=== PATIENT | male | born 1980 | race Caucasian/White ===

== ENCOUNTER → 2017-12-30 07:11 | Outpatient (CLI) | payer OTHER, SELFPAY ==
[2017-12-30 08:37] LABS: Microalbumin,Random Urine 37.2 mg/L (NO RANGE EST.); Microalbumin:Creatinine Ratio 9.7 mg/g CRE (<30 mg/g CRE)
[2017-12-30 08:44] LABS: AST(SGOT) 13 U/L (15-37); Alanine Aminotransfer ALT/SGPT 34 U/L (16-61); Alkaline Phosphatase 79 U/L (45-117); Anion Gap 7 (5-15); BUN 11 mg/dL (7-18); BUN/Creat Ratio 14.1 RATIO (10-20); Bilirubin, Direct 0.23 mg/dL (0.00-0.30); Calcium,Total 8.7 mg/dL (8.5-10.1); Chloride 108 mmol/L (98-107); Cholesterol 130 mg/dL (200); Creatinine, Serum 0.78 mg/dL (0.70-1.30); EST Glomerular Filtration Rate 119 mL/min (>60); Est Glom Filt Rate - Afr Amer 144 mL/min (>60); Globulin 3.3 g/dL (2.2-4.2); Glucose 105 mg/dL (74-106); High Density Lipoprotein 49 mg/dL; Potassium 3.9 mmol/L (3.5-5.1); Protein, Total 7.3 g/dL (6.4-8.2); Sodium Level 144 mmol/L (136-145); Triglycerides 117 mg/dL; Very Low Density Lipoprotein 23 mg/dL (5-40)
== END ==
PROVIDERS: Family Provider Family Medicine; PCP Family Medicine; Visit Provider Family Medicine
DX: E11.9 Type 2 diabetes mellitus without complications (principal)
CPT/HCPCS: 36415; 80048; 80061; 80076; 82043; 82570

== ENCOUNTER → 2018-06-28 16:51 | Outpatient (CLI) | payer OTHER, SELFPAY ==
[2018-06-28 17:51] LABS: Microalbumin,Random Urine 6.1 mg/L (NO RANGE EST.); Microalbumin:Creatinine Ratio 9.5 mg/g CRE (<30 mg/g CRE)
[2018-06-28 18:03] LABS: AST(SGOT) 17 U/L (15-37); Alanine Aminotransfer ALT/SGPT 38 U/L (16-61); Alkaline Phosphatase 74 U/L (45-117); Anion Gap 9 (5-15); BUN 10 mg/dL (7-18); BUN/Creat Ratio 12.3 RATIO (10-20); Bilirubin, Direct 0.12 mg/dL (0.00-0.30); Calcium,Total 8.8 mg/dL (8.5-10.1); Chloride 103 mmol/L (98-107); Cholesterol 139 mg/dL (200); Creatinine, Serum 0.81 mg/dL (0.70-1.30); EST Glomerular Filtration Rate 113 mL/min (>60); Est Glom Filt Rate - Afr Amer 137 mL/min (>60); Globulin 3.5 g/dL (2.2-4.2); Glucose 221 mg/dL (74-106); High Density Lipoprotein 43 mg/dL; Potassium 3.8 mmol/L (3.5-5.1); Protein, Total 7.5 g/dL (6.4-8.2); Sodium Level 141 mmol/L (136-145); Triglycerides 293 mg/dL; Very Low Density Lipoprotein 59 mg/dL (5-40)
== END ==
LOC: MFPLAB 16:52
PROVIDERS: Family Provider Family Medicine; PCP Family Medicine; Visit Provider Family Medicine
DX: E11.9 Type 2 diabetes mellitus without complications (principal)
CPT/HCPCS: 36415; 80048; 80061; 80076; 82043; 82570

== ENCOUNTER → 2018-09-27 16:44 | Outpatient (CLI) | payer OTHER, SELFPAY ==
[2018-09-27 18:07] LABS: Anion Gap 9 (5-15); BUN 8 mg/dL (7-18); BUN/Creat Ratio 9.1 RATIO (10-20); Calcium,Total 9.1 mg/dL (8.5-10.1); Chloride 103 mmol/L (98-107); Cholesterol 153 mg/dL (200); Creatinine, Serum 0.88 mg/dL (0.70-1.30); EST Glomerular Filtration Rate 102 mL/min (>60); Est Glom Filt Rate - Afr Amer 124 mL/min (>60); Glucose 94 mg/dL (74-106); High Density Lipoprotein 48 mg/dL; Sodium Level 141 mmol/L (136-145); Triglycerides 187 mg/dL; Very Low Density Lipoprotein 37 mg/dL (5-40)
== END ==
PROVIDERS: Family Provider Family Medicine; PCP Family Medicine; Visit Provider Family Medicine
DX: E11.9 Type 2 diabetes mellitus without complications (principal); Z79.4 Long term (current) use of insulin
CPT/HCPCS: 36415; 80048; 80061

== ENCOUNTER → 2019-10-05 | Outpatient (CLI) | payer OTHER, SELFPAY ==
[2019-10-05 08:35] LABS: Microalbumin,Random Urine 39.9 mg/L (NO RANGE EST.)
[2019-10-05 08:42] LABS: Anion Gap 5 (5-15); BUN 12 mg/dL (7-18); BUN/Creat Ratio 13.3 RATIO (10-20); Calcium,Total 9.1 mg/dL (8.5-10.1); Chloride 106 mmol/L (98-107); Cholesterol 157 mg/dL (200); EST Glomerular Filtration Rate 99 mL/min (>60); Est Glom Filt Rate - Afr Amer 120 mL/min (>60); Glucose 122 mg/dL (74-106); High Density Lipoprotein 49 mg/dL; Sodium Level 140 mmol/L (136-145); Triglycerides 169 mg/dL; Very Low Density Lipoprotein 34 mg/dL (5-40)
== END | disposition home or self-care (01) ==
LOC: LAB 07:22
PROVIDERS: Family Provider Family Medicine; PCP Family Medicine; Referring Provider Family Medicine; Visit Provider Family Medicine
DX: E11.65 Type 2 diabetes mellitus with hyperglycemia (principal)
CPT/HCPCS: 36415; 80048; 80061; 82043

== ENCOUNTER 2019-11-25 00:42 | Emergency (ER) | payer OTHER, SELFPAY ==
[2019-11-25 00:43] VITALS: BP 124/91; PULSE 68; RESP 16; TEMP 36.4; O2SAT 100; BMI 24.3
[2019-11-25 01:04] VITALS: BP 131/93; PULSE 73; RESP 18; O2SAT 100
--- NOTE | 2019-11-25 02:22 | ED.VIS.GEN ---
History of Present Illness Chief Complaint: Numb/Ting Informant: Patient Narrative: Patient stated he felt this evening with acute onset of full body paresthesia. He took his blood sugar was over 400. He has a history of diabetes. Give himself some insulin. His symptoms soon subsided. He was able to fall asleep in the department. Denies any complaints at this time. No nausea vomiting fevers or chills. Past Medical History - Allergies and Home Meds Allergies/Adverse Reactions: Allergies No Known Allergies Allergy (Verified 11/25/19 00:43) Primary Care Physician: Sae Sena MD [Primary Care Provider] - Prior records reviewed: Yes Past Medical History: - - Diabetes Surgical History: noncontributory Lives: With Family Smoking Status: Current every day smoker Alcohol: None Drugs: None Review of Systems General: Denies: Chills, Fever, Sweats Eyes: Denies: Visual changes - bilaterally, Diplopia ENT: Denies: Rhinorrhea, Sore throat Cardiovascular: Denies: Chest pain, Palpitations Respiratory: Denies: Dyspnea, Cough, Dyspnea on exertion Gastrointestinal: Denies: Abdominal pain, Nausea, Vomiting, Diarrhea, Melena, Hematochezia Genitourinary: Denies: Dysuria, Hematuria, Frequency Musculoskeletal: Denies: Back pain, Extremity Pain Skin: Denies: Rash, Wounds Neurological: Reports: Parasthesia. Denies: Headache, Weakness, Numbness Physical Exam Vital Signs/Narrative: Vital Signs Temp Pulse Resp BP Pulse Ox 11/25/19 01:04 73 18 131/93 H 100 11/25/19 00:43 97.6 F L 68 16 124/91 H 100 General: Well nourished, Well developed, No Acute Distress Head: Normocephalic, Atraumatic Eyes: Perrl, EOMI ENT: Moist mucous membranes, No rhinorrhea Neck: Supple, Nontender Cardiovascular: Regular rate, Regular rhythm, No murmurs Respiratory: No distress, CTA bilaterally, Chest nontender Abdomen: Soft, Nontender, Nondistended, Normal bowel sounds Back: Nontender, Normal Inspection Extremities: Nontender, No edema Skin: Normal color, No rash Neurological: Alert, Oriented x3, Cranial nerves II-XII grossly intact, Normal Strength, Normal Sensation Psychological: Normal affect, Normal Mood Diagnostic/Tx/Re-eval - Medical Decision Making Patient resting comfortably. He does not want bladder blood work. Symptoms have resolved. Repeat blood sugar 262. At this time I feel the patient can be discharged ED Disposition - Plan for ED Patient: Disposition: Home or Assisted Living Diagnosis: Paresthesia, Diabetes mellitus with hyperglycemia Instructions: DIABETES, General Info Referrals: Sae Sena MD [Primary Care Provider] -
[2019-11-25 02:31] LABS: Bedside Glucose 262 mg/dL (70-110)
== END 2019-11-25 02:35 | disposition home or self-care (01) ==
PROVIDERS: Emergency Provider Emergency Medicine; Family Provider Family Medicine; PCP Family Medicine
DX: R20.2 Paresthesia of skin (principal); E11.65 Type 2 diabetes mellitus with hyperglycemia; Z79.4 Long term (current) use of insulin; F17.200 Nicotine dependence, unspecified, uncomplicated
CPT/HCPCS: 82962; 99282; A4216

== ENCOUNTER → 2020-10-15 17:09 | Outpatient (CLI) | payer OTHER, SELFPAY ==
[2020-10-15 18:29] LABS: Anion Gap 4 (5-15); BUN 8 mg/dL (7-18); BUN/Creat Ratio 8.6 RATIO (10-20); Calcium,Total 8.9 mg/dL (8.5-10.1); Chloride 103 mmol/L (98-107); Cholesterol 146 mg/dL (200); Creatinine, Serum 0.93 mg/dL (0.70-1.30); EST Glomerular Filtration Rate 95 mL/min (>60); Est Glom Filt Rate - Afr Amer 115 mL/min (>60); Glucose 161 mg/dL (74-106); High Density Lipoprotein 45 mg/dL; Potassium 3.8 mmol/L (3.5-5.1); Sodium Level 137 mmol/L (136-145); Triglycerides 192 mg/dL; Very Low Density Lipoprotein 38 mg/dL (5-40)
== END ==
PROVIDERS: PCP Family Medicine; Visit Provider Family Medicine
DX: E11.9 Type 2 diabetes mellitus without complications (principal); Z79.4 Long term (current) use of insulin
CPT/HCPCS: 36415; 80048; 80061

== ENCOUNTER → 2021-10-23 06:55 | Outpatient (CLI) | payer OTHER, SELFPAY ==
[2021-10-23 07:48] LABS: Anion Gap 8 (5-15); BUN 10 mg/dL (7-18); BUN/Creat Ratio 10.6 RATIO (10-20); Calcium,Total 9.1 mg/dL (8.5-10.1); Chloride 103 mmol/L (98-107); Cholesterol 158 mg/dL (200); Creatinine, Serum 0.94 mg/dL (0.70-1.30); EST Glomerular Filtration Rate 94 mL/min (>60); Est Glom Filt Rate - Afr Amer 114 mL/min (>60); Glucose 78 mg/dL (74-106); High Density Lipoprotein 50 mg/dL; Potassium 3.7 mmol/L (3.5-5.1); Sodium Level 139 mmol/L (136-145); Triglycerides 150 mg/dL; Very Low Density Lipoprotein 30 mg/dL (5-40)
[2021-10-23 07:58] LABS: Microalbumin,Random Urine 29.8 mg/L (NO RANGE EST.)
== END ==
PROVIDERS: PCP Family Medicine; Referring Provider Family Medicine; Visit Provider Family Medicine
DX: E11.9 Type 2 diabetes mellitus without complications (principal)
CPT/HCPCS: 36415; 80048; 80061; 82043; 82570

== ENCOUNTER → 2022-07-23 | Outpatient (CLI) | payer OTHER, SELFPAY ==
[2022-07-23 08:21] LABS: Anion Gap 4 (5-15); BUN 13 mg/dL (7-18); BUN/Creat Ratio 11.8 RATIO (10-20); Calcium,Total 9.3 mg/dL (8.5-10.1); Chloride 106 mmol/L (98-107); EST Glomerular Filtration Rate 78 mL/min (>60); Est Glom Filt Rate - Afr Amer 94 mL/min (>60); Glucose 78 mg/dL (74-106); Potassium 4.4 mmol/L (3.5-5.1); Sodium Level 140 mmol/L (136-145)
== END | disposition home or self-care (01) ==
LOC: MTLAB 07:22 → LAB 07:23
PROVIDERS: PCP Family Medicine; Referring Provider Family Medicine; Visit Provider Family Medicine
DX: E11.9 Type 2 diabetes mellitus without complications (principal)
CPT/HCPCS: 36415; 80048

== ENCOUNTER → 2022-12-03 | Outpatient (CLI) | payer OTHER, SELFPAY ==
[2022-12-03 08:02] LABS: Anion Gap 3 (5-15); BUN 12 mg/dL (7-18); BUN/Creat Ratio 13.3 RATIO (10-20); Calcium,Total 9.2 mg/dL (8.5-10.1); Chloride 108 mmol/L (98-107); Cholesterol 148 mg/dL (200); EST Glomerular Filtration Rate 98 mL/min (>60); Est Glom Filt Rate - Afr Amer 119 mL/min (>60); Glucose 93 mg/dL (74-106); High Density Lipoprotein 50 mg/dL; Sodium Level 141 mmol/L (136-145); Triglycerides 117 mg/dL; Very Low Density Lipoprotein 23 mg/dL (5-40)
== END | disposition home or self-care (01) ==
LOC: LAB 07:32
PROVIDERS: PCP Family Medicine; Visit Provider Family Medicine
DX: E11.9 Type 2 diabetes mellitus without complications (principal)
CPT/HCPCS: 36415; 80048; 80061

== ENCOUNTER 2023-03-25 04:40 | Emergency (ER) | payer OTHER, SELFPAY ==
[2023-03-25 04:42] VITALS: BP 146/106; PULSE 108; RESP 15; TEMP 36.5; O2SAT 99; BMI 26.4
[2023-03-25 05:29] LABS: Absolute Lymphocyte Count 1.71 X10^3/uL (0.83-4.51); Absolute Neutrophil Count 6.9 X10^3/uL (2.0-7.7); Basophil# 0.05 X10^3/uL; Basophil% 0.5 % (0-1); Eosinophil# 0.15 X10^3/uL; Eosinophils% 1.6 % (0-5); Hematocrit 45.9 % (40-54); Hemoglobin 15.8 g/dL (13.0-16.5); Lymphocyte # 1.71 X10^3/ul (0.83-4.51); Lymphocyte % 17.8 % (19-41); Mean Corp Hgb Conc 34.4 g/dL (32-36); Mean Corpuscular Hgb 28.9 pg (27.0-32.0); Mean Corpuscular Volume 84.1 fL (80-94); Mean Platelet Vol. 9.8 fl (6.2-12.0); Monocyte# 0.73 X10^3/uL; Monocyte% 7.6 % (0-10); NRBC Flagged by Analyzer 0 % (0-5); Neutrophil # 6.93 X10^3/uL (2.7-7.7); Neutrophil % 72.1 % (47-70); Platelet Count 299 K/mm3 (150-450); RBC Distribution Width SD 39.6 fl (35.1-43.9); Red Blood Count 5.46 M/mm3 (4.6-6.2); White Blood Count 9.6 K/mm3 (4.4-11.0)
[2023-03-25] MEDS: 0.9% Normal Saline 1,000 ML 999 ML IV (05:33)
[2023-03-25 05:47] VITALS: BP 149/99; PULSE 92; RESP 18; O2SAT 97
[2023-03-25 05:55] LABS: Anion Gap 10 (5-15); BUN 10 mg/dL (7-18); Calcium,Total 9.2 mg/dL (8.5-10.1); Chloride 106 mmol/L (98-107); EST Glomerular Filtration Rate 87 mL/min (>60); Est Glom Filt Rate - Afr Amer 105 mL/min (>60); Estimated Creatinine Clearance 110.74 ml/min; Glucose 208 mg/dL (74-106); Magnesium 2.1 mg/dL (1.6-2.6); Potassium 4.2 mmol/L (3.5-5.1); Sodium Level 141 mmol/L (136-145); Thyroid Stim Hormone (TSH) 1.18 uIU/mL (0.358-3.74)
--- NOTE | 2023-03-25 06:16 | EX.ED.DYSGE1 ---
HPI History of Present Illness Chief Complaint: Palpitations Narrative Narrative: Patient is a 43-year-old male with remote history of supraventricular tachycardia when he was younger. He states he has not had an issue with it for multiple years. He reports he was sleeping this evening when he awoke feeling like his heart was racing. He states he tried to hold his breath as he did in the past when he would have a bout of this with no success and therefore EMS was called. Patient states that there is been no illicit drug use or excessive stimulant use that could have caused tonight symptom. EMS reports that they did give the patient adenosine prior to arrival [facility] Medical History no medical history Home Medications lisinopril 20 mg tablet 20 mg PO DAILY #30 tabs 03/25/23 [Rx Last Taken Unknown] Allergy/AdvReac Type Severity Reaction Status Date / Time No Known Allergies Allergy Verified 11/25/19 00:43 Surgical History no surgical history Social History Smoking Status: Current every day smoker tobacco type: cigarettes ROS ROS ED Constitutional Constitutional ED: Denies chills or fever(s) ENT ENT ED: Denies sore throat Cardiovascular Cardiovascular: Reports palpitations and racing heartbeat; Denies chest pain Respiratory/Chest Respiratory/Chest: Denies cough or dyspnea Gastrointestinal Gastrointestinal: Denies abdominal pain, diarrhea, nausea or vomiting Genitourinary Genitourinary ED: Denies dysuria Musculoskeletal Musculoskeletal: Denies myalgias Integumentary Denies rash Neurologic Neurologic: Denies headache(s) Hematologic/Lymphatic Hematologic/Lymphatic: Denies easy bleeding or easy bruising EXAM Physical Exam Const Vital Signs: 03/25/23 04:42 03/25/23 05:47 Temperature 97.7 F L Temperature Source Temporal Pulse Rate 108 H 92 Respiratory Rate 15 18 Blood Pressure 146/106 H 149/99 H Blood Pressure Mean 119 115 Pulse Ox 99 97 Oxygen Delivery Method Room Air Room Air Positive well nourished and well developed General Appearance ED: well developed HEENT HEENT Narrative: Normocephalic atraumatic Eyes PERRL and EOMs intact bilaterally Neck supple Neck Narrative: No carotid bruit noted Chest Wall palpation of chest normal Resp normal respiratory effort and clear to auscultation bilaterally Cardio regular rhythm Rate: tachycardic and other Other Details: Tachycardic rate with regular rhythm Radial pulses are plus 2 out of 4 bilaterally are equal and symmetric Carotid pulses are equal and symmetric as well GI normal to inspection, nondistended, normoactive bowel sounds, non-tender, non-distended and no masses Auscultation: normoactive bowel sounds Palpation: soft Extremity normal to inspection Extremity Narrative: No asymmetric edema no pitting edema negative Homans' sign bilaterally Neuro oriented x3 and CN's II-XII intact bilaterally Sensorium / Orientation: alert Psych mental status grossly normal Skin no rashes or lesions noted MDM MDM MDM Narrative Medical decision making narrative: Patient presented to the ER tachycardic but was in sinus tachycardia and not SVT which correlates with the fact EMS gave patient adenosine prior to arrival. The patient denied any illicit substance or drug use/stimulant use which could have precipitated today's event and therefore as there is possibility that acute blood loss anemia thyroid disorder or electrolyte derangement because his symptoms a basic work-up was obtained. Lab work revealed no clinically significant findings. Patient gradually reduced his heart rate to under 100 and remained in normal sinus rhythm. Patient's blood pressure was elevated but there are no signs of endorgan damage. Therefore at this time with no signs of endorgan damage and resolution of his SVT that is not requiring electrolyte replacement or having recurrent bouts of it I do not feel there is necessity to keep the patient in the hospital and he is otherwise safe for discharge Based on the fact he has been persistently hypertensive I will start lisinopril secondary to this History & Record Review Discussion w/independent historian: EMS personnel, Patient and Family Lab Data Attestation: I reviewed the patient's lab results. Labs: Laboratory Results - last 24 hr 03/25/23 03/25/23 04:50 04:50 WBC 9.6 RBC 5.46 Hgb 15.8 Hct 45.9 MCV 84.1 MCH 28.9 MCHC 34.4 RDW Std Deviation 39.6 RDW Coeff of Marjorie 13.0 Plt Count 299 MPV 9.8 Immature Gran % (Auto) 0.400 Neut % (Auto) 72.1 H Lymph % (Auto) 17.8 L Imperial % (Auto) 7.6 Eos % (Auto) 1.6 Baso % (Auto) 0.5 Absolute Neuts (auto) 6.9 Absolute Lymphs (auto) 1.71 Nucleated RBC % 0 Sodium 141 Potassium 4.2 Chloride 106 Carbon Dioxide 25.0 Anion Gap 10 BUN 10 Creatinine 1.00 Estim Creat Clear Calc 110.74 Est GFR (MDRD) Af Amer 105 Est GFR (MDRD) Non-Af 87 BUN/Creatinine Ratio 10.0 Glucose 208 H Calcium 9.2 Magnesium 2.1 TSH 1.18 Discharge Plan Triage Chief Complaint: Palpitations ED Provider: Merrick Rizvi Dx/Rx/DC Orders Clinical Impression: Supraventricular tachycardia, Hypertension Instructions: Hypertension Dc, ED Understanding Supraventricular Tachycardia (SVT) Prescriptions: New lisinopril 20 mg tablet 20 mg PO DAILY Qty: 30 0RF Primary Care Provider: Sae Sena Referrals: Sae Sena MD [Primary Care Provider] - Activity Restrictions/Additional Instructions: Please begin taking the 20 mg lisinopril secondary to your hypertension. Follow-up with your family doctor to discuss referral to a publishing manager and/or hazmat truck driver for further evaluation of your SVT. If symptoms return you can try to break them as you have done in the past by holding your breath blowing into a straw or massaging your neck or placing your face into an ice water bath Disposition Disposition: Home, Self Care Discharge Date/Time: 03/25/23 06:30
[2023-03-25 06:25] VITALS: BP 156/90; PULSE 88; RESP 12; O2SAT 98
== END 2023-03-25 06:30 | disposition home or self-care (01) ==
PROVIDERS: Emergency Provider Emergency Medicine; PCP Family Medicine; Visit Provider Emergency Medicine
DX: I47.1 Supraventricular tachycardia (principal); I10 Essential (primary) hypertension; F17.210 Nicotine dependence, cigarettes, uncomplicated; Z79.899 Other long term (current) drug therapy
CPT/HCPCS: 80048; 83735; 84443; 85025; 93005; 96360; 99284

== ENCOUNTER → 2023-10-18 | Outpatient (CLI) | payer OTHER, SELFPAY ==
[2023-10-18 18:11] LABS: Microalbumin,Random Urine < 5.0 mg/L (NO RANGE EST.)
[2023-10-18 18:23] LABS: ALB/GLOB Ratio 1.1 RATIO (0.9-2.4); AST(SGOT) 15 U/L (15-37); Alanine Aminotransfer ALT/SGPT 34 U/L (16-61); Alkaline Phosphatase 70 U/L (45-117); Anion Gap 5 (5-15); BUN 9 mg/dL (7-18); BUN/Creat Ratio 9.5 RATIO (10-20); Calcium,Total 9.1 mg/dL (8.5-10.1); Chloride 105 mmol/L (98-107); Cholesterol 152 mg/dL (200); Creatinine, Serum 0.94 mg/dL (0.70-1.30); EST Glomerular Filtration Rate 93 mL/min (>60); Est Glom Filt Rate - Afr Amer 112 mL/min (>60); Globulin 3.5 g/dL (2.2-4.2); Glucose 145 mg/dL (74-106); High Density Lipoprotein 48 mg/dL; Potassium 3.6 mmol/L (3.5-5.1); Protein, Total 7.5 g/dL (6.4-8.2); Sodium Level 138 mmol/L (136-145); Triglycerides 195 mg/dL; Very Low Density Lipoprotein 39 mg/dL (5-40)
== END | disposition home or self-care (01) ==
LOC: MTLAB 17:06
PROVIDERS: PCP Family Medicine; Referring Provider Family Medicine; Visit Provider Family Medicine
DX: E11.9 Type 2 diabetes mellitus without complications (principal); I10 Essential (primary) hypertension
CPT/HCPCS: 36415; 80053; 80061; 82043

== ENCOUNTER → 2024-05-17 | Outpatient (CLI) | payer OTHER, SELFPAY ==
[2024-05-17 18:12] LABS: Hemoglobin A1c 6.1 % (3.8-5.6)
[2024-05-17 18:20] LABS: ALB/GLOB Ratio 1.1 RATIO (0.9-2.4); AST(SGOT) 21 U/L (15-37); Alanine Aminotransfer ALT/SGPT 31 U/L (16-61); Albumin, Serum 4.1 g/dL (3.2-5.0); Alkaline Phosphatase 70 U/L (45-117); Anion Gap 9 (5-15); BUN 11 mg/dL (7-18); BUN/Creat Ratio 11.1 RATIO (10-20); Calcium,Total 8.9 mg/dL (8.5-10.1); Chloride 100 mmol/L (98-107); Cholesterol 133 mg/dL (200); EST Glomerular Filtration Rate 87 mL/min (>60); Est Glom Filt Rate - Afr Amer 105 mL/min (>60); Globulin 3.6 g/dL (2.2-4.2); Glucose 244 mg/dL (74-106); High Density Lipoprotein 42 mg/dL; Potassium 4.6 mmol/L (3.5-5.1); Protein, Total 7.7 g/dL (6.4-8.2); Sodium Level 133 mmol/L (136-145); Triglycerides 256 mg/dL; Very Low Density Lipoprotein 51 mg/dL (5-40)
== END | disposition home or self-care (01) ==
LOC: MFPLAB 16:42
PROVIDERS: PCP Family Medicine; Visit Provider Family Medicine
DX: E11.9 Type 2 diabetes mellitus without complications (principal)
CPT/HCPCS: 36415; 80053; 80061; 83036

== ENCOUNTER → 2024-11-13 | Outpatient (CLI) | payer OTHER, SELFPAY ==
[2024-11-13 18:39] LABS: ALB/GLOB Ratio 1.1 RATIO (0.9-2.4); AST(SGOT) 16 U/L (15-37); Alanine Aminotransfer ALT/SGPT 41 U/L (16-61); Alkaline Phosphatase 62 U/L (45-117); Anion Gap 5 (5-15); BUN 10 mg/dL (7-18); BUN/Creat Ratio 10.9 RATIO (10-20); Calcium,Total 9.1 mg/dL (8.5-10.1); Chloride 102 mmol/L (98-107); Cholesterol 137 mg/dL (200); Creatinine, Serum 0.91 mg/dL (0.70-1.30); EST Glomerular Filtration Rate 95 mL/min (>60); Est Glom Filt Rate - Afr Amer 115 mL/min (>60); Globulin 3.5 g/dL (2.2-4.2); Glucose 129 mg/dL (74-106); High Density Lipoprotein 44 mg/dL; Potassium 4.2 mmol/L (3.5-5.1); Protein, Total 7.5 g/dL (6.4-8.2); Sodium Level 136 mmol/L (136-145); Triglycerides 240 mg/dL; Very Low Density Lipoprotein 48 mg/dL (5-40)
[2024-11-13 19:49] LABS: Microalbumin,Random Urine < 5.0 mg/L (NO RANGE EST.)
== END | disposition home or self-care (01) ==
LOC: MFPLAB 16:56
PROVIDERS: PCP Family Medicine; Referring Provider Family Medicine; Visit Provider Family Medicine
DX: E11.9 Type 2 diabetes mellitus without complications (principal)
CPT/HCPCS: 36415; 80053; 80061; 82043

== ENCOUNTER 2025-01-20 10:55 | Emergency (ER) | payer OTHER, SELFPAY ==
[2025-01-20 10:57] VITALS: BP 157/83; PULSE 77; RESP 16; TEMP 36.2; O2SAT 100; BMI 25.4
[2025-01-20 11:30] VITALS: O2SAT 100
--- NOTE | 2025-01-20 11:30 | EKG12_ITS ---
Test Reason : PALPS Blood Pressure : */* mmHG Vent. Rate : 77 BPM Atrial Rate : 77 BPM P-R Int : 134 ms QRS Dur : 100 ms QT Int : 372 ms P-R-T Axes : 61 57 61 degrees QTcB Int : 420 ms Normal sinus rhythm Cannot rule out Inferior infarct , age undetermined Abnormal ECG Confirmed by Vicente Loomis ([id number]), supervising film or videotape editor DEENA MAYBERRY ([id number]) on 01/22/2025 8:00:29 AM Referred By: RACHELL/HAYDER Confirmed By: Vicente Loomis
--- NOTE | 2025-01-20 11:32 | EX.ED.DYSGE1 ---
HPI <DILMA Banegas - Last Filed: 01/20/25 13:04> History of Present Illness Chief Complaint: Palpitations Narrative Narrative: Patient is a 44-year-old male with history of hypertension, history of tachycardia presumably SVT, type 2 diabetes that is insulin-dependent presenting to the emergency department for feeling of palpitations. Patient states he did have a episode 1 year ago where they had to use a medicine to slow his heart rate down. Patient does not see a military source operations specialist how he does see his PCP. Patient states today while at work, he felt dizzy, felt that his heart rate was beating fast, he checked his pulse it was over 120. Secondary to his history, he is here for evaluation. Patient denies any recent travel, recent surgeries, patient [place] any history of blood clots in legs or lungs PFS <DILMA Banegas - Last Filed: 01/20/25 13:04> [facility] Medical History (Updated 01/20/25 @ 13:04 by DILMA Banegas) Diabetes Home Medications ?Medication ?Instructions ?Recorded ?Last Taken ?Type lisinopril 20 mg tablet 20 mg PO DAILY #30 tabs 03/25/23 Unknown Rx amlodipine 5 mg tablet 5 mg PO DAILY 01/20/25 Unknown History insulin aspart U-100 100 unit/mL 30 unit subcut TID 01/20/25 Unknown History (3 mL) subcutaneous pen (Novolog FlexPen U-100 Insulin aspart) insulin glargine 100 unit/mL (3 100 unit subcut QHS 01/20/25 Unknown History mL) subcutaneous pen (Lantus Solostar U-100 Insulin) lisinopril 10 mg tablet 10 mg PO DAILY 01/20/25 Unknown History metformin 500 mg tablet mg 01/20/25 Unknown History sitagliptin phosphate 100 mg 100 mg PO DAILY 01/20/25 Unknown History tablet (Januvia) Allergy/AdvReac Type Severity Reaction Status Date / Time No Known Allergies Allergy Verified 01/20/25 10:57 Surgical History no surgical history Social History Smoking Status: Heavy Smoker (>10/day) ROS <DILMA Banegas - Last Filed: 01/20/25 13:04> ROS ED ROS Narrative Constitutional: Negative for fever, chills, weight loss, weakness Eyes: Negative for vision loss, vision change, double vision ENT: Negative for any sore throat, ear pain, congestion Cardiovascular: Negative for any chest pain, tightness. Positive palpitations Respiratory: Negative for any cough, sputum production, hemoptysis, dyspnea, dyspnea on exertion, orthopnea Gastrointestinal: Negative for any abdominal pain, nausea, vomiting, diarrhea, constipation, blood in stool, blood in vomit : Negative for any urinary frequency, dysuria, retention, blood in urine Muscle skeletal: Negative for any neck pain, back pain Neurological: Negative for any headache, syncope, dizziness Skin: Negative for any rashes, itching, abrasions, lacerations Psychiatric: Negative for any depression, anxiety, stress, suicidal ideation, homicidal ideation Hematologic: Negative for any excessive bruising, easy bleeding EXAM <DILMA Banegas - Last Filed: 01/20/25 13:04> Physical Exam Narrative Exam Narrative: Vital signs reviewed. Patient is in no obvious distress. HEET: Head normocephalic atraumatic, TMs clear bilaterally. Posterior pharynx is clear, moist mucous membranes. Nares clear bilaterally. Neck: Supple with no lymphadenopathy or tenderness. No signs of meningismus. Cardiac: Regular rate and rhythm no murmurs gallops or rubs, equal peripheral pulses bilaterally. Respiratory: Lungs clear to auscultation bilaterally. No chest tenderness. Abdomen: Soft, nontender, nondistended. No abdominal bruit or pulsatile masses. No hepatosplenomegaly Extremities: No peripheral edema, no signs of gross trauma or deformity. Active full range of motion of all extremities. Neuro: Cranial nerves II through XII intact, no focal neurological deficits. Skin: Clean dry and intact with no rash, purpura, petechiae, vesicles or pustules. Backs/flank: No CVA tenderness, no midline spinal tenderness, no deformity. Psych: Normal mood and affect. No SI, HI or acute psychosis. Const Vital Signs: 01/20/25 10:57 01/20/25 11:29 01/20/25 11:30 Temperature 97.2 F L Temperature Source Oral Pulse Rate 77 Respiratory Rate 16 Respiratory Effort Normal Blood Pressure 157/83 H Blood Pressure Mean 107 Pulse Ox 100 100 Oxygen Delivery Method Room Air Room Air 01/20/25 12:56 01/20/25 13:05 Temperature 97.2 F L Temperature Source Pulse Rate 79 79 Respiratory Rate 14 14 Respiratory Effort Blood Pressure 157/83 H Blood Pressure Mean 107 Pulse Ox 97 97 Oxygen Delivery Method <Dr. Gutierrez Carrasquillo DO - Last Filed: 01/20/25 14:07> Physical Exam Const Vital Signs: 01/20/25 10:57 01/20/25 11:29 01/20/25 11:30 Temperature 97.2 F L Temperature Source Oral Pulse Rate 77 Respiratory Rate 16 Respiratory Effort Normal Blood Pressure 157/83 H Blood Pressure Mean 107 Pulse Ox 100 100 Oxygen Delivery Method Room Air Room Air 01/20/25 12:56 01/20/25 13:05 Temperature 97.2 F L Temperature Source Pulse Rate 79 79 Respiratory Rate 14 14 Respiratory Effort Blood Pressure 157/83 H Blood Pressure Mean 107 Pulse Ox 97 97 Oxygen Delivery Method MDM <DILMA Banegas - Last Filed: 01/20/25 13:04> [facility] Lab Data Labs: Laboratory Results - last 24 hr 01/20/25 11:26 WBC 9.9 RBC 5.13 Hgb 14.8 Hct 42.8 MCV 83.4 MCH 28.8 MCHC 34.6 RDW Std Deviation 39.3 RDW Coeff of Marjorie 13.0 Plt Count 291 MPV 9.4 Immature Gran % (Auto) 0.700 Neut % (Auto) 79.3 H Lymph % (Auto) 11.4 L Stanton % (Auto) 6.3 Eos % (Auto) 1.8 Baso % (Auto) 0.5 Absolute Neuts (auto) 7.9 H Absolute Lymphs (auto) 1.13 Nucleated RBC % 0 Sodium 136 Potassium 4.2 Chloride 102 Carbon Dioxide 25.0 Anion Gap 10 BUN 13 Creatinine 0.96 Estim Creat Clear Calc 114.17 Est GFR (MDRD) Af Amer 109 Est GFR (MDRD) Non-Af 90 BUN/Creatinine Ratio 13.5 Glucose 160 H Calcium 9.0 Troponin I High Sens 3 TSH 1.140 Radiography Diagnostic Testing: Clinical Impression(s) from Imaging Studies Chest X-Ray 01/20/25 11:45 IMPRESSION: No acute cardiopulmonary process. Reading Location: [facility] EKG Normal sinus rhythm: Attestation: I personally reviewed and interpreted this EKG as follows: Interpretation: Sinus Rhythm Comments: Normal sinus rhythm, rate of 77 bpm, IN interval 134 ms, QRS duration 100 ms, no acute ST elevation, no acute infarct noted. Treatment and Re-Evaluation :: Differential diagnosis includes however is not limited to: SVT, electrolyte abnormality, anxiety, atrial fibrillation, a flutter, dehydration Patient appears generally well, vital signs are stable, patient is nontoxic-appearing. Presenting to the emergency department for complaints of palpitations. Patient will receive a cardiac workup including basic laboratory values, TSH, chest x-ray as well as troponin. Patient at this time is in a normal sinus rhythm. He is in no obvious distress. Patient is PERC negative. All radiologic examinations were read, reviewed by the emergency department attending. From these reads, a plan of care will be put in place. Patient remained in normal sinus rhythm, patient CBC was unremarkable, chemistries were unremarkable, glucose 160. Patient's troponin was 3, TSH within normal limits. At this time, do believe the patient can be discharged home. He does need to follow-up with cardiology. He can get further cardiac workup as well as a Holter monitor. He is happy the plan of care, stable for discharge. He was given strict return precaution. <Dr. Gutierrez Carrasquillo, DO - Last Filed: 01/20/25 14:07> [facility] History & Record Review Discussion w/independent historian: Patient Lab Data Attestation: I reviewed the patient's lab results. Labs: Laboratory Results - last 24 hr 01/20/25 11:26 WBC 9.9 RBC 5.13 Hgb 14.8 Hct 42.8 MCV 83.4 MCH 28.8 MCHC 34.6 RDW Std Deviation 39.3 RDW Coeff of Marjorie 13.0 Plt Count 291 MPV 9.4 Immature Gran % (Auto) 0.700 Neut % (Auto) 79.3 H Lymph % (Auto) 11.4 L Stanton % (Auto) 6.3 Eos % (Auto) 1.8 Baso % (Auto) 0.5 Absolute Neuts (auto) 7.9 H Absolute Lymphs (auto) 1.13 Nucleated RBC % 0 Sodium 136 Potassium 4.2 Chloride 102 Carbon Dioxide 25.0 Anion Gap 10 BUN 13 Creatinine 0.96 Estim Creat Clear Calc 114.17 Est GFR (MDRD) Af Amer 109 Est GFR (MDRD) Non-Af 90 BUN/Creatinine Ratio 13.5 Glucose 160 H Calcium 9.0 Troponin I High Sens 3 TSH 1.140 Radiography Diagnostic Testing: Clinical Impression(s) from Imaging Studies Chest X-Ray 01/20/25 11:45 IMPRESSION: No acute cardiopulmonary process. Reading Location: [facility] Treatment and Re-Evaluation :: Differential diagnosis includes however is not limited to: SVT, electrolyte abnormality, anxiety, atrial fibrillation, a flutter, dehydration Patient appears generally well, vital signs are stable, patient is nontoxic-appearing. Presenting to the emergency department for complaints of palpitations. Patient will receive a cardiac workup including basic laboratory values, TSH, chest x-ray as well as troponin. Patient at this time is in a normal sinus rhythm. He is in no obvious distress. Patient is PERC negative. All radiologic examinations were read, reviewed by the emergency department attending. From these reads, a plan of care will be put in place. Patient remained in normal sinus rhythm, patient CBC was unremarkable, chemistries were unremarkable, glucose 160. Patient's troponin was 3, TSH within normal limits. At this time, do believe the patient can be discharged home. He does need to follow-up with cardiology. He can get further cardiac workup as well as a Holter monitor. He is happy the plan of care, stable for discharge. He was given strict return precaution. I have personally performed a face to face assessment of the patient and have reviewed the GARRY Note. I performed a substantive portion of the visit including all aspects of the following. My willoughby findings include: History is 44-year-old male presenting to the emergency room with recurrent episode of tachycardia. Patient was seen in February 2023 after arriving by EMS for a tachycardia that resolved with adenosine. Symptoms today have subsequently resolved. He is not on a rate limiting agent and he does not have a local military source operations specialist. He has not undergone EP study or Holter monitor testing. Today's rate was around 120. Exam is afebrile vital signs are stable. Heart is regular without murmur lung sounds are clear and equal exam is benign Medical Decison Making EKG shows a sinus rhythm with no preexcitation. Basic blood work showed no significant abnormalities. My independent interpretation of the plain film chest x-ray is no acute process. I was going to recommend that the patient follow-up with cardiology for further evaluation of the recurrent presumed SVT. Discharge Plan Triage Chief Complaint: Palpitations ED Midlevel Provider: Sae Jorgensen ED Provider: Gutierrez Carrasquillo Dx/Rx/DC Orders Clinical Impression: Heart palpitations Instructions: ED About Arrhythmias, ED Palpitations Prescriptions: No Action lisinopril 20 mg tablet 20 mg PO DAILY Qty: 30 0RF metformin 500 mg tablet amlodipine 5 mg tablet 5 mg PO DAILY lisinopril 10 mg tablet 10 mg PO DAILY insulin aspart U-100 [Novolog FlexPen U-100 Insulin] 100 unit/mL (3 mL) insulin pen 30 unit subcut TID Januvia 100 mg tablet 100 mg PO DAILY insulin glargine [Lantus Solostar U-100 Insulin] 100 unit/mL (3 mL) insulin pen 100 unit subcut QHS Primary Care Provider: Sae Sena Referrals: Vicente Loomis MD [Med Staff - Active Staff] - Sae Sena MD [Primary Care Provider] - Activity Restrictions/Additional Instructions: Please follow-up with cardiology. Return for any worsening symptoms. Print Language: Indian Disposition Disposition: Home, Self Care Discharge Date/Time: 01/20/25 13:19
--- NOTE | 2025-01-20 11:45 | RAD_ITS ---
EXAM: XR Chest, 2 Views CLINICAL INDICATION: TECHNIQUE: Frontal and lateral views of the chest. COMPARISON: No relevant prior studies available. FINDINGS: LUNGS AND PLEURAL SPACES: Unremarkable. No consolidation. No pneumothorax. HEART: Unremarkable. No cardiomegaly. MEDIASTINUM: Unremarkable. Normal mediastinal contour. BONES/JOINTS: Unremarkable. No acute fracture. RAD/Chest PA and Lateral IMPRESSION: No acute cardiopulmonary process. Reading [facility]
--- NOTE | 2025-01-20 11:45 | ED.RN ---
Patient transported to radiology
[2025-01-20 11:54] LABS: Absolute Lymphocyte Count 1.13 X10^3/uL (0.83-4.51); Absolute Neutrophil Count 7.9 X10^3/uL (2.0-7.7); Basophil# 0.05 X10^3/uL; Basophil% 0.5 % (0-1); Eosinophil# 0.18 X10^3/uL; Eosinophils% 1.8 % (0-5); Hematocrit 42.8 % (40-54); Hemoglobin 14.8 g/dL (13.0-16.5); Lymphocyte # 1.13 X10^3/ul (0.83-4.51); Lymphocyte % 11.4 % (19-41); Mean Corp Hgb Conc 34.6 g/dL (32-36); Mean Corpuscular Hgb 28.8 pg (27.0-32.0); Mean Corpuscular Volume 83.4 fL (80-94); Mean Platelet Vol. 9.4 fl (6.2-12.0); Monocyte# 0.62 X10^3/uL; Monocyte% 6.3 % (0-10); NRBC Flagged by Analyzer 0 % (0-5); Neutrophil # 7.85 X10^3/uL (2.7-7.7); Neutrophil % 79.3 % (47-70); Platelet Count 291 K/mm3 (150-450); RBC Distribution Width SD 39.3 fl (35.1-43.9); Red Blood Count 5.13 M/mm3 (4.6-6.2); White Blood Count 9.9 K/mm3 (4.4-11.0)
[2025-01-20 12:19] LABS: Anion Gap 10 (5-15); BUN 13 mg/dL (7-18); BUN/Creat Ratio 13.5 RATIO (10-20); Chloride 102 mmol/L (98-107); Creatinine, Serum 0.96 mg/dL (0.70-1.30); EST Glomerular Filtration Rate 90 mL/min (>60); Est Glom Filt Rate - Afr Amer 109 mL/min (>60); Estimated Creatinine Clearance 114.17 ml/min; Glucose 160 mg/dL (74-106); Potassium 4.2 mmol/L (3.5-5.1); Sodium Level 136 mmol/L (136-145); Troponin-I HS 3 pg/mL (3.0-78.0)
[2025-01-20 12:56] VITALS: PULSE 79; RESP 14; O2SAT 97
[2025-01-20 13:05] VITALS: BP 157/83; PULSE 79; RESP 14; TEMP 36.2; O2SAT 97
== END 2025-01-20 13:19 | disposition home or self-care (01) ==
PROVIDERS: Nurse Practitioner; Emergency Provider Emergency Medicine; PCP Family Medicine; Visit Provider Emergency Medicine
DX: R00.2 Palpitations (principal); E11.9 Type 2 diabetes mellitus without complications; I10 Essential (primary) hypertension; F17.200 Nicotine dependence, unspecified, uncomplicated; Z79.899 Other long term (current) drug therapy; Z79.84 Long term (current) use of oral hypoglycemic drugs
CPT/HCPCS: 71046; 80048; 84443; 84484; 85025; 93005; 99284; A4216

== ENCOUNTER → 2025-03-11 | Outpatient (CLI) | payer OTHER, SELFPAY ==
[2025-03-11 10:22] LABS: Hemoglobin A1c 6.2 % (<=5.6)
[2025-03-11 10:33] LABS: Cholesterol 143 mg/dL (<=200); High Density Lipoprotein 45 mg/dL; Low Density Lipoprotein Calc. 82 mg/dL; Triglycerides 79 mg/dL; Very Low Density Lipoprotein 16 mg/dL (5-40); cholesterol:hdl ratio screen 3.19
[2025-03-11 10:35] LABS: Anion Gap 9 (5-15); BUN 10 mg/dL (4-19); BUN/Creat Ratio 9.5 RATIO (10-20); Calcium,Total 9.2 mg/dL (7.6-11.0); Carbon Dioxide 23.7 mmol/L (21.0-32.0); Chloride 105 mmol/L (98-108); Creatinine, Serum 1.03 mg/dL (0.70-1.20); EST Glomerular Filtration Rate 91 (>60); Glucose 115 mg/dL (70-99); Potassium 4.9 mmol/L (3.3-5.1); Sodium Level 138 mmol/L (133-145)
[2025-03-11 12:09] LABS: Microalbumin,Random Urine < 12.0 mg/L (NO RANGE EST.); Microalbumin:Creatinine Ratio UNABLE TO CALCULATE mg/g CRE
== END | disposition home or self-care (01) ==
LOC: LAB 07:55
PROVIDERS: PCP Family Medicine; Referring Provider Family Medicine; Visit Provider Family Medicine
DX: E11.9 Type 2 diabetes mellitus without complications (principal)
CPT/HCPCS: 36415; 80048; 80061; 82043; 82570; 83036

== ENCOUNTER → 2025-04-08 | Outpatient (CLI) | payer OTHER, SELFPAY ==
--- NOTE | 2025-04-08 07:42 | ECHOD_ITS ---
Reason For Study Reason For Study: Arrhythmia, palps Procedure This was a 2D Doppler, Color Flow transthoracic echocardiogram. Exam performed in department. Left Ventricle Normal LV size. Mild concentric left ventricular hypertrophy. Left ventricular systolic function is normal. The left ventricular ejection fraction is 65 %. No regional wall motion abnormalities noted. Right Ventricle Normal RV size. Normal systolic function. Atria Normal left atrium. Normal right atrium. Mitral Valve Normal mitral valve. Tricuspid Valve Normal tricuspid valve. Aortic Valve Trisinus/trileaflet aortic valve. Pulmonic Valve Normal pulmonic valve. Great Vessels Normal aortic root. The pulmonary artery is normal size. Inferior vena cava collapse with respiration. Pericardium/Pleural No pericardial effusion. MMode/2D Measurements & Calculations LVIDd: 4.2 cm IVSd: 1.3 cm Ao root diam: 2.8 cm LVIDs: 2.5 cm LVPWd: 1.3 cm RVDd: 3.0 cm FS: 41.3 % LAV(MOD-bp): 37.9 ml LVAd ap4: 28.5 cm2 LVAd ap2: 31.8 cm2 LAV(MOD-bp) Indexed: 17.1 ml/m2 LVLd ap4: 8.2 cm LVLd ap2: 8.2 cm LAV(MOD-sp2): 36.5 ml EDV(MOD-sp4): 84.6 ml EDV(MOD-sp2): 105.9 ml LAV(MOD-sp4): 40.4 ml EDV(sp4-el): 83.7 ml EDV(sp2-el): 104.7 ml LVAs ap4: 14.9 cm2 LVAs ap2: 17.2 cm2 LVLs ap4: 7.0 cm LVLs ap2: 7.1 cm ESV(MOD-sp4): 28.5 ml ESV(MOD-sp2): 35.8 ml ESV(sp4-el): 26.7 ml ESV(sp2-el): 35.4 ml EF(MOD-sp4): 66.3 % EF(MOD-sp2): 66.2 % EF(sp4-el): 68.1 % SV(MOD-sp4): 56.1 ml SV(MOD-sp2): 70.1 ml SV(sp4-el): 57.0 ml SI(MOD-sp4): 25.4 ml/m2 SI(MOD-sp2): 31.7 ml/m2 LA A4 area: 14.7 cm2 LA dimension(2D): 3.9 cm RA A4 area: 13.1 cm2 TAPSE: 2.2 cm Time Measurements MV dec time: 0.15 sec Doppler Measurements & Calculations MV E max gurpreet: 108.6 cm/sec Lat Peak E' Gurpreet: 17.2 cm/sec Med Peak E' Gurpreet: 9.4 cm/sec MV A max gurpreet: 71.6 cm/sec E/E' lat: 6.3 E/E' med: 11.5 MV E/A: 1.5 Ao V2 max: 152.1 cm/sec LV V1 max: 128.9 cm/sec MV dec slope: 731.3 cm/sec2 Ao max P.3 mmHg LV V1 max P.6 mmHg Ao V2 mean: 110.1 cm/sec LV V1 mean P.9 mmHg Ao mean P.4 mmHg LV V1 mean: 94.4 cm/sec Ao V2 VTI: 32.4 cm LV V1 VTI: 30.4 cm AV (velocity ratio): 0.94 PA V2 max: 105.6 cm/sec ECHO/Echo Complete Interpretation Summary Normal LV size. Left ventricular systolic function is normal. The left ventricular ejection fraction is 65 %. Mild concentric left ventricular hypertrophy. Structurally normal valves. Ordering Physician: Vicente Loomis Referring Physician: Sae Sena Performed By: Rekha Regalado RDCS
== END | disposition home or self-care (01) ==
LOC: CVS 07:37
PROVIDERS: PCP Family Medicine; Referring Provider Internal Medicine Cardiovascular Disease; Visit Provider Internal Medicine Cardiovascular Disease
DX: R01.1 Cardiac murmur, unspecified (principal); Z86.79 Personal history of other diseases of the circulatory system
CPT/HCPCS: 93306

== ENCOUNTER → 2025-09-20 | Outpatient (CLI) | payer OTHER, SELFPAY ==
--- OUTSIDE RECORDS SUMMARY | 2025-09-20 07:09 | XMS RPT_ITS | CCD ---
Author Organization [facility] Inform ion Partnership [facility] Care Team Providers Care [employer] Name Role Phone Nathen DUTTON, Dr. Quevedo Primary Care Provider [phone] Dr. Gutierrez Carrasquillo DO Attending Provider [phone] Dr. Gutierrez Carrasquillo DO Emergency Provider Nathen DUTTON, Dr. Quevedo Attending Provider Nathen DUTTON, Dr. Quevedo Referring Provider [phone] Ebonie DUTTON, Dr. Zhang Attending Provider Ebonie DUTTON, Dr. Zhang Referring Provider Yanique DUTTON, Dr. Hunter Attending Provider [phone] Sae Sena Primary Care Unavailable Massiel Loomis Attending Massiel Millard Referring Unavailable Nathen, Sae Referring Unavailable Nathen, Sae Primary Care Unavailable Nathen, Sae Attending Unavailable Nathen, Sae Referring Unavailable Nathen, Sae Primary Care Unavailable Nathen, Sae Attending Unavailable Nathen, Sae Primary Care Unavailable Gutierrez Carrasquillo Attending Unavailable Nathen, Sae Primary Care Unavailable Mick ARIAS, Ioana Attending Unavailable Nathen, Sae Referring Unavailable Nathen, Sae Primary Care Unavailable Dale Chanel Attending Unavailable Nathen, Sae Primary Care Unavailable Ebonie, Massiel Attending Unavailable Nathen, Sae Referring Unavailable Medications Current Medications Medication Drug Class(es) Dates Sig (Normalized) Sig (Original) 24 hr dilTIAZem hydrochloride 240 mg extended release oral capsule (2 sources) Calcium Channel Atif Start: 03-11-2025 take 1 capsule by mouth once daily Diltiazem Hcl 240 mg capsule,extended release 24hr Active 240 mg PO daily 180 March 11, 2025 12:00am empagliflozin 10 mg oral tablet (2 sources) Sodium-Glucose Cotransporter 2 Inhibitor Start: 02-14-2025 take 1 tablet by mouth once daily Empagliflozin (Jardiance) 10 mg tablet Active 10 mg PO DAILY February 14, 2025 12:00am fluticasone propionate 0.05 mg/actuat metered dose nasal spray (2 sources) Corticosteroid Start: 02-14-2025 Fluticasone Propionate 50 mcg/actuation spray,suspension Active 1 NMA INTRANASAL TWICE A DAY as needed February 14, 2025 12:00am administer into each nostril ibuprofen 200 mg oral tablet (2 sources) Nonsteroidal Anti-inflammatory Drug Start: 03-11-2025 take 2 tablets by mouth every six hours as needed Ibuprofen 200 mg tablet Active 400 mg PO EVERY 6 HOURS as needed March 11, 2025 12:00am 3 ml insulin aspart, human 100 unt/ml pen injector (2 sources) Insulin Analog Start: 01-20-2025 Insulin Aspart U-100 (Insulin Aspart U-100 100 Unit/Ml (3 Ml) Subcutaneous Pen) 100 unit/mL (3 mL) insulin pen Active 30 U SC THREE TIMES A DAY January 20, 2025 1:00am 3 ml insulin glargine 100 unt/ml pen injector (2 sources) Insulin Analog Start: 01-20-2025 Insulin Glargine (Insulin Glargine 100 Unit/Ml (3 Ml) Subcutaneous Pen) 100 unit/mL (3 mL) insulin pen Active 100 U SC AT BEDTIME January 20, 2025 1:00am Joebees (2 sources) Start: 03-11-2025 Joebees Active PO DAILY March 11, 2025 12:00am lisinopril 10 mg oral tablet (6 sources) Angiotensin Converting Enzyme Inhibitor Start: 01-20-2025 take 1 tablet by mouth once daily Lisinopril 10 mg tablet Active 10 mg PO DAILY January 20, 2025 1:00am Start: 03-25-2023 End: 02-14-2025 take 1 tablet by mouth once daily Lisinopril 20 mg tablet Discontinued 20 mg PO DAILY March 25, 2023 12:00am February 14, 2025 10:25am metFORMIN hydrochloride 500 mg oral tablet (4 sources) Biguanide Start: 01-20-2025 End: 02-14-2025 take 1 tablet by mouth twice daily Metformin 500 mg tablet Active 500 mg PO TWICE A DAY February 14, 2025 10:23am omeprazole 40 mg delayed release oral capsule (2 sources) Proton Pump Inhibitor Start: 03-11-2025 take 1 capsule by mouth once daily in the evening Omeprazole 40 mg capsule,delayed release(DR/EC) Active 40 mg PO EVERY EVENING March 11, 2025 12:00am Completed/Discontinued Medications Medication Drug Class(es) Dates Sig (Normalized) Sig (Original) amLODIPine 5 mg oral tablet (2 sources) Dihydropyridine Calcium Channel Atif Start: 01-20-2025 End: 03-11-2025 take 1 tablet by mouth once daily Amlodipine 5 mg tablet Discontinued 5 mg PO DAILY January 20, 2025 1:00am March 11, 2025 10:33am SITagliptin 100 mg oral tablet (2 sources) Dipeptidyl Peptidase 4 Inhibitor Start: 01-20-2025 End: 02-14-2025 take 1 tablet by mouth once daily Sitagliptin Phosphate (Sitagliptin Phosphate 100 Mg Tablet) 100 mg tablet Discontinued 100 mg PO DAILY January 20, 2025 1:00am February 14, 2025 10:27am Problems Active Problems Problem Classification Problem Date Documented Date Episodic/Chronic Cardiac dysrhythmias (4 sources) Supraventricular tachycardia; Translations: [Supraventricular tachycardia] 04-02-2023 Chronic Diabetes mellitus with complications (5 sources) Diabetes mellitus; Translations: [Type 2 diabetes mellitus with hyperglycemia] 11-26-2019 Chronic Diabetes mellitus without complication (5 sources) Type 2 diabetes mellitus; Translations: [Type 2 diabetes mellitus without complications] Onset: 03-18-2025 03-11-2025 Chronic Essential hypertension (7 sources) Hypertensive disorder; Translations: [Essential (primary) hypertension] 04-02-2023 Chronic Other circulatory disease (4 sources) History of cardiac arrhythmia; Translations: [Personal history of other diseases of the circulatory system] 02-14-2025 Episodic Other nervous system disorders (5 sources) Paresthesia; Translations: [Paresthesia of skin] 11-26-2019 Episodic Past or Other Problems Problem Classification Problem Date Documented Da te Episodic/Chronic Cardiac dysrhythmias (5 sources) Palpitations; Translations: [Palpitations] Onset: 01-28-2025 02-14-2025 Episodic Heart valve disorders (1 source) Cardiac murmur, unspecified; Translations: [Cardiac murmur, unspecified] Onset: 04-15-2025 Episodic Other circulatory disease (1 source) Personal history of other diseases of the circulatory system; Translations: [Personal history of other diseases of the circulatory system] Onset: 03-11-2025 Episodic Results Test Name Value Interpretation Reference Range Facility Cardiology Visit Reporton Cardiology Visit Report [facility] [address] [place] [address] OFFICE VISIT Date of Service: 09/12/25 MR#: [id number] Acct: [id number] Name: MASSIEL DAVIS Rep #: [id number] : 1980 Provider: DILMA leyva Age/Sex: 45/M [place] [facility] Status: Signed HPI HPI History of Present Illness Details: Patient is a pleasant 45-year-old white male who presents today for cardiovascular follow-up visit. Patient carries a history of tachycardia that has been present since he was a child. Historically has been able to break this with vagal maneuvers but in December 2024 he had an episode where her he got real jittery and dizzy but did was not syncopal or presyncopal. He has never had syncope with these episodes. He presented to the emergency department by the time he got there he had broken. 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 This was minimally changed from an old EKG from February 2023 when he had a similar event and actually received adenosine in the EMS squad. From a cardiac standpoint, the patient is doing well. He does acknowledge occasional palpitations. He describes this as a rapid heart rate. He denies any chest pain, pressure or heaviness. He denies SOB, Orthopnea, and PND. He does not have bleeding issues; no blood in urine, stool, or nosebleeds. He does acknowledge fatigue. He denies myalgias, or claudication. He does not have edema, or sudden weight gain. He denies lightheadedness, dizziness, syncopal or near syncopal episodes, and headaches. 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 Accompanied by: Self Is patient in pain?: No Allergies No Known Allergies Allergy (Verified 09/12/25 15:37) Medications ???Medication ???Instructions ???Recorded ???Confirmed ???Type insulin aspart U-100 100 unit/mL 30 unit subcut TID 01/20/25 History (3 mL) subcutaneous pen (Novolog FlexPen U-100 Insulin aspart) lisinopril 10 mg tablet 10 mg PO DAILY 01/20/25 09/12/25 H istory empagliflozin 10 mg tablet 10 mg PO DAILY 02/14/25 09/12/25 H istory (Jardiance) fluticasone propionate 50 1 spray intranasal BID PRN 5 09/12/25 History mcg/actuation nasal spray,suspension metformin 500 mg tablet 500 mg PO BID 02/14/25 09/12/25 Hi story Joebees PO DAILY 03/11/25 09/12/25 History diltiazem HCl 240 mg 240 mg PO QDAY #180 caps 03/11/25 09/12/25 Rx capsule,extended release 24 hr ibuprofen 200 mg tablet 400 mg PO Q6H PRN 03/11/25 5 History omeprazole 40 mg capsule,delayed 40 mg PO QPM 03/11/25 09/12/25 His tory release insulin glargine 100 unit/mL (3 100 unit subcut QHS 09/12/2509/12 History mL) subcutaneous pen (Lantus Solostar U-100 Insulin) Ejection fraction %: 65 Have you fallen in the past year?: No PFSH Medical History Tobacco abuse Heart palpitations Essential hypertension Type 2 diabetes mellitus without complication Family History Mother Myocardial infarction Grandfather CVA (cerebral vascular accident) Social History Smoking Status: Heavy Smoker (>10/day) Smokeless tobacco user: chewing tobacco alcohol intake: current substance use type: does not use caffeine: Yes ROS Const Const: Positive for fatigue and difficulty sleeping; Negative for weakness or headache(s) Eyes Eyes: Negative for change in vision ENT ENT: Negative for headache(s), dizziness, Nosebleed/epistaxis or balance problems Cardio Chest Pain: No Palpitations: Yes feels like its: fast Edema: None Resp Respiratory: Negative for SOB with activity GI GI: Negative nausea, vomiting, heartburn or bright, red blood in stools : Negative for hematuria Musc Musc: Negative for balance problems Neuro Neuro: Negative for dizziness, lightheadedness, syncope, headache(s) or weakness Endo Endo: Positive for fatigue Cardiology Exam Const Appearance: cooperative, comfortable, no acute distress and well developed Nutritional Appearance: overweight Orientation: alert and oriented x3 Head Head: normal to inspection Ears: hearing grossly normal bilaterally Nose: external nose normal Face and Sinus: face symmetric Eyes General: appearance normal, both eyes and all rela (more content not included)... Normal [facility] Echo Completeon 04-08-2025 Echo Complete [facility] [address] [place] [address] Echo Complete 04/08/25 0747 MR#: [id number] Acct: [id number] Name: MASSIEL DAVIS Rep #: [id number] : 1980 45 From: Dale Chanel MD Attending Dr: Dr. Massiel Loomis MD Status: [facility] Ordering Dr: Massiel Loomis MD Date: 04/08/25 Location: CVS Sex: M C Admitted: Reason For Study Reason For Study: Arrhythmia, palps Procedure This was a 2D Doppler, Color Flow transthoracic echocardiogram. Exam performed in department. Left Ventricle Normal LV size. Mild concentric left ventricular hypertrophy. Left ventricular systolic function is normal. The left ventricular ejection fraction is 65 %. No regional wall motion abnormalities noted. Right Ventricle Normal RV size. Normal systolic function. Atria Normal left atrium. Normal right atrium. Mitral Valve Normal mitral valve. Tricuspid Valve Normal tricuspid valve. Aortic Valve Trisinus/trileaflet aortic valve. Pulmonic Valve Normal pulmonic valve. Great Vessels Normal aortic root. The pulmonary artery is normal size. Inferior vena cava collapse with respiration. Pericardium/Pleural No pericardial effusion. MMode/2D Measurements Calculations LVIDd: 4.2 cm IVSd: 1.3 cm Ao root diam: 2.8 cm LVIDs: 2.5 cm LVPWd: 1.3 cm RVDd: 3.0 cm FS: 41.3 % __ LAV(MOD-bp): 37.9 ml LVAd ap4: 28.5 cm2 LVAd ap2: 31.8 cm2 LAV(MOD-bp) Indexed: 17.1 ml/m2 LVLd ap4: 8.2 cm LVLd ap2: 8.2 cm LAV(MOD-sp2): 36.5 ml EDV(MOD-sp4): 84.6 ml EDV(MOD-sp2): 105.9 ml LAV(MOD-sp4): 40.4 ml EDV(sp4-el): 83.7 ml EDV(sp2-el): 104.7 ml LVAs ap4: 14.9 cm2 LVAs ap2: 17.2 cm2 LVLs ap4: 7.0 cm LVLs ap2: 7.1 cm ESV(MOD-sp4): 28.5 ml ESV(MOD-sp2): 35.8 ml ESV(sp4-el): 26.7 ml ESV(sp2-el): 35.4 ml EF(MOD-sp4): 66.3 % EF(MOD-sp2): 66.2 % EF(sp4-el): 68.1 % __ SV(MOD-sp4): 56.1 ml SV(MOD-sp2): 70.1 ml SV(sp4-el): 57.0 ml SI(MOD-sp4): 25.4 ml/m2 SI(MOD-sp2): 31.7 ml/m2 __ LA A4 area: 14.7 cm2 LA dimension(2D): 3.9 cm RA A4 area: 13.1 cm2 __ TAPSE: 2.2 cm Time Measurements MV dec time: 0.15 sec Doppler Measurements Calculations MV E max gurpreet: 108.6 cm/sec Lat Peak E' Gurpreet: 17.2 cm/sec Med Peak E' Gurpreet: 9.4 cm/sec MV A max gurpreet: 71.6 cm/sec E/E' lat: 6.3 E/E' med: 11.5 MV E/A: 1.5 __ Ao V2 max: 152.1 cm/sec LV V1 max: 128.9 cm/sec MV dec slope: 731.3 cm/sec2 Ao max P.3 mmHg LV V1 max P.6 mmHg Ao V2 mean: 110.1 cm/sec LV V1 mean P.9 mmHg Ao mean P.4 mmHg LV V1 mean: 94.4 cm/sec Ao V2 VTI: 32.4 cm LV V1 VTI: 30.4 cm AV (velocity ratio): 0.94 __ PA V2 max: 105.6 cm/sec ECHO/Echo Complete Interpretation Summary Normal LV size. Left ventricular systolic function is normal. The left ventricular ejection fraction is 65 %. Mild concentric left ventricular hypertrophy. Structurally normal valves. __ Ordering Physician: Massiel Loomis Referring Physician: Sae Sena Performed By: Rekha Regalado RDCS 04/08/2557 Date Dale Chanel MD CC: Dr. Massiel Loomis MD; Dr. Sae Sena MD Date Dictated: 04/08/25 0747 Date Transcribed: 04/08/25856 [employer] Tech: Signed Normal [facility] Echocardiogram study reportO rdered By: Dale Chanel on 04-08-2025 Study report [facility] [address] [place] [address] Echo Complete 04/08/25 0747 MR#: [id number] Acct: [id number] Name: MASSIEL DAVIS Rep #:[id number] : 1980 45 From: Dale Omalley Attending Dr: Dr. Massiel Loomis MD Status: REG CLI Ordering Dr: Massiel Loomis MD Date: 04/08/25 Location: [facility] Sex: M C Admitted: Reason For Study Reason For Study: Arrhythmia, palps Procedure This was a 2D Doppler, Color Flow transthoracic echocardiogram. Exam performed in department. Left Ventricle Normal LV size. Mild concentric left ventricular hypertrophy. Left ventricular systolic function is normal. The left ventricular ejection fraction is 65 %. No regional wall motion abnormalities noted. Right Ventricle Normal RV size. Normal systolic function. Atria Normal left atrium. Normal right atrium. Mitral Valve Normal mitral valve. Tricuspid Valve Normal tricuspid valve. Aortic Valve Trisinus/trileaflet aortic valve. Pulmonic Valve Normal pulmonic valve. Great Vessels Normal aortic root. The pulmonary artery is normal size. Inferior vena cava collapse with respiration. Pericardium/Pleural No pericardial effusion. MMode/2D Measurements & Calculations LVIDd: 4.2 cm IVSd: 1.3 cm Ao root diam: 2.8 cm LVIDs: 2.5 cm LVPWd: 1.3 cm RVDd: 3.0 cm FS: 41.3 % ____ LAV(MOD-bp): 37.9 ml LVAd ap4: 28.5 cm2 LVAd ap2: 31.8 cm2 LAV(MOD-bp) Indexed: 17.1 ml/m2 LVLd ap4: 8.2 cm LVLd ap2: 8.2 cm LAV(MOD-sp2): 36.5 ml EDV(MOD-sp4): 84.6 ml EDV(MOD-sp2): 105.9 ml LAV(MOD-sp4): 40.4 ml EDV(sp4-el): 83.7 ml EDV(sp2-el): 104.7 ml LVAs ap4: 14.9 cm2 LVAs ap2: 17.2 cm2 LVLs ap4: 7.0 cm LVLs ap2: 7.1 cm ESV(MOD-sp4): 28.5 ml ESV(MOD-sp2): 35.8 ml ESV(sp4-el): 26.7 ml ESV(sp2-el): 35.4 ml EF(MOD-sp4): 66.3 % EF(MOD-sp2): 66.2 % EF(sp4-el): 68.1 % __ SV(MOD-sp4): 56.1 ml SV(MOD-sp2): 70.1 ml SV(sp4-el): 57.0 ml SI(MOD-sp4): 25.4 ml/m2 SI(MOD-sp2): 31.7 ml/m2 ____ LA A4 area: 14.7 cm2 LA dimension(2D): 3.9 cm RA A4 area: 13.1 cm2 ____ TAPSE: 2.2 cm Time Measurements MV dec time: 0.15 sec Doppler Measurements & Calculations MV E max gurpreet: 108.6 cm/sec Lat Peak E' Gurpreet: 17.2 cm/sec Med Peak E' Gurpreet: 9.4 cm/sec MV A max gurpreet: 71.6 cm/sec E/E' lat: 6.3 E/E' med: 11.5 MV E/A: 1.5 ____ Ao V2 max: 152.1 cm/sec LV V1 max: 128.9 cm/sec MV dec slope: 731.3 cm/sec2 Ao max P.3 mmHg LV V1 max P.6 mmHg Ao V2 mean: 110.1 cm/sec LV V1 mean P.9 mmHg Ao mean P.4 mmHg LV V1 mean: 94.4 cm/sec Ao V2 VTI: 32.4 cm LV V1 VTI: 30.4 cm AV (velocity ratio): 0.94 __ PA V2 max: 105.6 cm/sec ECHO/Echo Complete Interpretation Summary Normal LV size. Left ventricular systolic function is normal. The left ventricular ejection fraction is 65 %. Mild concentric left ventricular hypertrophy. Structurally normal valves. __ Ordering Physician: Massiel Loomis Referring Physician: Sae Sena Performed By: Rekha Regalado RDCS 04/08/25856 Date _ Dale Chanel MD CC: Dr. Massiel Loomis MD; Dr. Sae Sena MD ~ Date Dictated: 04/08/25746 Date Transcribed: 04/08/25856 [employer] Tech: Signed [facility] Work Phone: Albumin DL <= 20 mg/L (U) [M ass/Vol]Ordered By: Sae Sena on 03-11-2025 Urine Random Microalbumin < 12.0 mg/L NO RANGE EST. [facility] Anion gap in Serum or Plasma Ordered By: Sae Sena on 03-11-2025 Anion gap [Moles/Vol] 9 mmol/L 04-10 [facility] BUN/creatinine ratioOrdered By: Sae Sena on 03-11-2025 Urea nitrogen/Creatinine [Mass ratio] 9.5 mg/mg Low 09-15 [facility] Basic Metabolic Profile (BMP )on 03-11-2025 BUN/CRE 9.5 RATIO Low 09-15 [facility] Comment on above: Performed By: #### L 501.9962, L500.6370, L502.0250, L500.2500 ####[facility] [address] [place], [address] Calcium [Mass/Vol] 9.2 mg/dL Normal 7.6-11.0 [facility] Comment on above: Performed By: #### L 501.9985, L500.4100, L502.0250, L500.2500 ####[facility] [address] [place], [address] Chloride [Moles/Vol] 105 mmol/L Normal 98-108 [facility] Comment on above: Performed By: #### L 501.9985, L500.4100, L502.0250, L500.2500 ####[facility] [address] [place], [address] CO2 [Moles/Vol] 23.7 mmol/L Normal 21.0-32.0 [facility] Comment on above: Performed By: #### L 501.9985, L500.4100, L502.0250, L500.2500 ####[facility] [address] [place], [address] Creatinine [Mass/Vol] 1.03 mg/dL Normal 0.70-1.20 [facility] Comment on above: Performed By: #### L 501.9985, L500.4100, L502.0250, L500.2500 ####[facility] [address] [place], [address] GAP 9 Normal 5-15 [facility] Comment on above: Performed By: #### L 501.9985, L500.4100, L502.0250, L500.2500 ####[facility] [address] [place], [address] GFR/1.73 sq M.predicted among non-blacks MDRD (S/P/Bld) [Vol rate/Area] 91 mL/min/{1.73_m2} Normal >60 [facility] Comment on above: Result Comment: mL/m in/1.73m2 CKD-EPI Creatinine Equation (2020) Performed By: #### L 501.9985, L500.4100, L502.0250, L500.2500 ####[facility] [address] [place], [address] Glucose [Mass/Vol] 115 mg/dL High 70-99 [facility] Comment on above: Performed By: #### L 501.9985, L500.4100, L502.0250, L500.2500 ####[facility] [address] [place], [address] Potassium [Moles/Vol] 4.9 mmol/L Normal 3.3-5.1 [facility] Comment on above: Result Comment: Hemo lysis present, Results??could be affected. ?? Performed By: #### L 501.9985, L500.4100, L502.0250, L500.2500 ####[facility] [address] [place], [address] Sodium [Moles/Vol] 138 mmol/L Normal 133-145 [facility] Comment on above: Performed By: #### L 501.9985, L500.4100, L502.0250, L500.2500 ####[facility] [address] [place], [address] Urea nitrogen [Mass/Vol] 10 mg/dL Normal 4-19 [facility] Comment on above: Performed By: #### L 501.9985, L500.4100, L502.0250, L500.2500 ####[facility] [address] [place], [address] Calculated very low density lipoprotein (VLDL) cholesterol measurementOrdered By: Sae Sena on 03-11-2025 Calculated very low density lipoprotein (VLDL) cholesterol measurement 16 mg/dL -40 [facility] VLDL Cholesterol 16 mg/dL -40 [facility] Carbon dioxide, total [Moles /volume] in Central venous bloodOrdered By: Sae Sena on 03-11-2025 CO2 [Moles/Vol] 23.7 mmol/L 21.0-32.0 [facility] Cardiology Visit Reporton Cardiology Visit Report [facility] [address] [place] [address] OFFICE VISIT Date of Service: 03/11/25 MR#: [id number] Acct: [id number] Name: MASSIEL DAVIS Rep #: [id number] : 1980 Provider: Dr. Massiel sterling MD Age/Sex: 45/M [place] [facility] [place] Status: Signed HPI HPI History of Present Illness Details: Patient is a pleasant 45-year-old white male that comes in today with his for new patient visit. Patient carries a history of tachycardia that has been present since he was a child. Historically has been able to break this with vagal maneuvers but in December 2024 he had an episode where her he got real jittery and dizzy but did was not syncopal or presyncopal. He has never had syncope with these episodes. He presented to the emergency department by the time he got there he had broken. 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 This was minimally changed from an old EKG from February 2023 when he had a similar event and actually received adenosine in the EMS squad. Patient reports that he has the significant events about once or twice every 2 months. He actually wore a 14-day event monitor through his primary physician's office. The results are currently in the process of being faxed to our office. The patient reports to me that he had 3 times that he punched the button and he was in SVT at that time it was short-lived. He also had multiple other episodes according to the results that he was given where he had SVT as well. The patient does report he had a heart murmur since he was a child. He does not remember having an echocardiogram. The patient also has a history of hypertension which is well-controlled and a hist ory of insulin requiring diabetes. Last hemoglobin A1c was 6.7 by his report. He does use a monitoring system. The patient works for the [employer]. He reports that he can keep up with the other employees. He denies any significant drop-off in his exercise tolerance. Intake Vital Signs 01/20/25 10:57 03/11/25 10:15 Height 6 ft 2 in 6 ft 2 in Weight: 201 lb BMI 25.8 BP 104/66 Blood Pressure Location Lt brachial Position Sitting Respiration 18 Pulse 64 Pulse Source Monitor Pulse Oximetry (%) 93 Oxygen Delivery Method room air Intake Visit Reasons: Tachycardia/AFIB (Sena) Tester [employer] Required: No Accompanied by: Is patient in pain?: No Allergies No Known Allergies Allergy (Verified 03/11/25 10:18) Medications ???Medication ???Instructions ???Recorded ???Confirmed ???Type insulin aspart U-100 100 unit/mL 30 unit subcut TID 01/20/25 History (3 mL) subcutaneous pen (Novolog FlexPen U-100 Insulin aspart) insulin glargine 100 unit/mL (3 100 unit subcut QHS 01/20/2503/11 History mL) subcutaneous pen (Lantus Solostar U-100 Insulin) lisinopril 10 mg tablet 10 mg PO DAILY 01/20/25 03/11/25 H istory empagliflozin 10 mg tablet 10 mg PO DAILY 02/14/25 03/11/25 H istory (Jardiance) fluticasone propionate 50 1 spray intranasal BID PRN 5 03/11/25 History mcg/actuation nasal spray,suspension metformin 500 mg tablet 500 mg PO BID 02/14/25 03/11/25 Hi story Joebees PO DAILY 03/11/25 03/11/25 History diltiazem HCl 240 mg 240 mg PO QDAY #180 caps 03/11/25 03/11/25 Rx capsule,extended release 24 hr ibuprofen 200 mg tablet 400 mg PO Q6H PRN 03/11/25 5 History omeprazole 40 mg capsule,delayed 40 mg PO QPM 03/11/25 03/11/25 His tory release Have you fallen in the past year?: No PFSH Medical History Tobacco abuse Heart palpitations Essential hypertension Type 2 diabetes mellitus without complication Family History Mother Myocardial infarction Grandfather CVA (cerebral vascular accident) Social History Smoking Status: Heavy Smoker (>10/day) Smokeless tobacco user: chewing tobacco alcohol intake: current substance use type: does not use caffeine: Yes ROS Const Const: Negative for fatigue or weakness ENT ENT: Negative for dizziness or balance problems Cardio Chest Pain: No Palpitations: Yes Edema: None Muscle aches with walking: None Resp Respiratory: Negative for SOB with activity, SOB at rest or SOB orthopnea SOB lying down GI GI: Positive for heartburn; Negative nausea or vomiting Musc Musc: Negative for muscle weakness or balance problems Neuro Neuro: Positive for lightheadedness; Negative for dizziness, near syncope, syncope or weakness Endo Endo: Negative for fatigue Cardiology (more content not included)... Normal [facility] Chloride assayOrdered By: Chris Sena on 03-11-2025 Chloride [Moles/Vol] 105 mmol/L 98-108 [facility] Creatinine Unsp time (U) [Ma ss/Vol]Ordered By: Sae Sena on 03-11-2025 Creatinine (U) [Mass/Vol] 62.20 mg/dL 39.00-259 .00 [facility] GFR/1.73 sq M.predicted tomasa g non-blacks MDRD (S/P/Bld) [Vol rate/Area]Ordered By: Sae Sena on 03-11-2025 Estimated GFR (MDRD) Non-Af Amer 91 >60 [facility] Comment on above: mL/min/1.73m2 CKD-EP I Creatinine Equation (2020) Glomerular filtration rate ( GFR) estimation/1.73 sq m using serum, plasma, or whole bOrdered By: Sae Sena on 03-11-2025 GFR/1.73 sq M.predicted among non-blacks MDRD (S/P/Bld) [Vol rate/Area] 91 mL/min/{1.73_m2} >60 [facility] Comment on above: mL/min/1.73m2 CKD-EP I Creatinine Equation (2020) Hemoglobin A1con 03-11-2025 HbA1c (Bld) [Mass fraction] 6.2 % High <=5.6 [facility] Comment on above: Result Comment: Norm al < 5.7 % Prediabetic 5.7 - 6.4 % Diabetic >or= 6.5 % Please note range changes. Performed By: #### L 501.9985, L500.4100, L502.0250, L500.2500 #### [facility] [address] [place], [address] Hemoglobin A1c percentageOrd ered By: Sae Sena on 03-11-2025 HbA1c (Bld) [Mass fraction] 6.2 % High <5.7 [facility] Comment on above: Normal < 5.7 % Predi abetic 5.7 - 6.4 % Diabetic >or= 6.5 % Please note range changes. LDL calc ser/plasOrdered By: Sae Sena on 03-11-2025 Cholesterol in LDL [Mass/Vol] 82 mg/dL [facility] Comment on above: Wonzfvwuaj=405-795 m g/dL & Higher Xqxf=916 mg/dL or greater LDL Cholesterol, Calculated 82 mg/dL [facility] Comment on above: Qsjrjfyago=383-916 m g/dL & Higher Snhw=870 mg/dL or greater Lipid Profileon 03-11-2025 CHOL:HDL 3.19 Normal [facility] Comment on above: Performed By: #### L 501.9985, L500.4100, L502.0250, L500.2500 ####[facility] [address] [place], [address] Cholesterol [Mass/Vol] 143 mg/dL Normal <=200 [facility] Comment on above: Result Comment: Chol esterol level, Desirable <200 mg/dL Borderline high cholesterol 200-239 mg/dL High cholesterol >=240 mg/dL Recommendations of the NCEP Adult Treatment Panel for the following risk-cutoff thresholds for the [place] population. Performed By: #### L 501.9985, L500.4100, L502.0250, L500.2500 ####[facility] [address] [place], [place], [id number] Cholesterol in HDL [Mass/Vol] 45 mg/dL Normal [facility] Comment on above: Result Comment: Sandra onal Cholesterol Education Program (NCEP) guidelines: <40 mg/dL: Low HDL-cholesterol (major risk factor for CHD) >= 60 mg/dL: High HDL-cholesterol (negative risk factor for CHD) HDL-cholesterol is affected by a number of factors, e.g. smoking, exercise, hormones, sex and age. Performed By: #### L 501.9985, L500.4100, L502.0250, L500.2500 ####[facility] [address] [place], [address] Cholesterol in LDL [Mass/Vol] 82 mg/dL Normal [facility] Comment on above: Result Comment: Bord glsbua=678-331 mg/dL Higher Ihrj=394 mg/dL or greater Performed By: #### L 501.9985, L500.4100, L502.0250, L500.2500 ####[facility] [address] [place], [address] Cholesterol in VLDL [Mass/Vol] 16 mg/dL Normal 5-40 [facility] Comment on above: Performed By: #### L 501.9985, L500.4100, L502.0250, L500.2500 ####[facility] [address] [place], [address] Triglyceride [Mass/Vol] 79 mg/dL Normal [facility] Comment on above: Result Comment: The drugs N-Acetylcysteine and Metamizole may falsely depress this assay. Normal range: <150 mg/dL Borderline High: 150-199 mg/dL High: 200-499 mg/dL Very High: >500 mg/dL Performed By: #### L 501.9985, L500.4100, L502.0250, L500.2500 ####[facility] [address] [place], [address] Microalb:Creat Ratio,Random URon 03-11-2025 Creatinine [Mass/Vol] 62.20 mg/dL Normal 39.00-259.00 [facility] Comment on above: Performed By: #### L 501.9985, L500.4100, L502.0250, L500.2500 ####[facility] [address] [place], [address] MALB:CREAT UNABLE TO CALCULATE Normal [facility] Comment on above: Performed By: #### L 501.9985, L500.4100, L502.0250, L500.2500 ####[facility] [address] [place], [address] MICROALBUMIN,UR < 12.0 Normal NO RANGE EST. [facility] Comment on above: Performed By: #### L 501.9985, L500.4100, L502.0250, L500.2500 ####[facility] [address] [place], [address] Microalbumin/creat ratio urO rdered By: Sae Sena on 03-11-2025 Urine Microalbumin/Creatinine Ratio UNABLE TO CALCULATE mg/g CRE [facility] Urine microalbumin/creatinine ratio measurement UNABLE TO CALCULATE mg/g CRE [facility] Potassium (Unsp spec) [Mass/ Vol]Ordered By: Sae Sena on 03-11-2025 Potassium [Moles/Vol] 4.9 mmol/L 3.3-5.1 [facility] Comment on above: Hemolysis present, R esults could be affected. Potassium measurement (mass/ volume)Ordered By: Sae Sena on 03-11-2025 Potassium (Unsp spec) [Mass/Vol] 4.9 mmol/L 3.3-5.1 [facility] Comment on above: Hemolysis present, R esults could be affected. Random urine creatinine kylah urement (mass/volume)Ordered By: Sae Sena on 03-11-2025 Creatinine Unsp time (U) [Mass/Vol] 62.20 mg/dL 39.00-259.00 [facility] Screening total cholesterol/ high density lipoprotein (HDL) cholesterol ratioOrdered By: Sae Sena on 03-11-2025 Cholesterol.total/Cholest tristen in HDL [Mass ratio] 3.19 {ratio} [facility] Serum creatinine measurement (mass/volume)Ordered By: Sae Sena on 03-11-2025 Creatinine [Mass/Vol] 1.03 mg/dL 0.70-1.20 [facility] Serum glucose measurement (m ass/volume)Ordered By: Sae Sena on 03-11-2025 Glucose [Mass/Vol] 115 mg/dL High 70-99 [facility] Serum or plasma calcium kylah urement (mass/volume)Ordered By: Sae Sena on 03-11-2025 Calcium [Mass/Vol] 9.2 mg/dL 7.6-11.0 [facility] Serum or plasma cholesterol in HDL measurement (mass/volume)Ordered By: Sae Sena on 03-11-2025 Cholesterol in HDL [Mass/Vol] 45 mg/dL >40 [facility] Comment on above: National Cholesterol Education Program (NCEP) guidelines:<40 mg/dL: Low HDL-cholesterol (major risk factor for CHD)>= 60 mg/dL: High HDL-cholesterol (negative risk factor for CHD)HDL-cholesterol is affected by a number of factors, e.g. smoking, exercise, hormones, sex and age. Serum or plasma cholesterol measurement (mass/volume)Ordered By: Sae Sena on 03-11-2025 Cholesterol [Mass/Vol] 143 mg/dL <201 [facility] Comment on above: Cholesterol level, D esirable <200 mg/dLBorderline high cholesterol 200-239 mg/dLHigh cholesterol >=240 mg/dLRecommendations of the NCEP Adult Treatment Panel for the following risk-cutoff thresholds for the [place] population. Serum or plasma urea nitroge n measurement (mass/volume)Ordered By: Sae Sena on 03-11-2025 Urea nitrogen [Mass/Vol] 10 mg/dL 4-19 [facility] Sodium levelOrdered By: Sae Sena on 03-11-2025 Sodium [Moles/Vol] 138 mmol/L 133-145 [facility] Triglycerides measurementOrd ered By: Sae Sena on 03-11-2025 Triglyceride [Mass/Vol] 79 mg/dL <199 [facility] Comment on above: The drugs N-Acetylcy steine and Metamizole may falsely depress this assay. Normal range: <150 mg/dLBorderline High: 150-199 mg/dLHigh: 200-499 mg/dLVery High: >500 mg/dL Urine albumin measurement [facility] detection limit of 20 mg/L or less (mass/volume)Ordered By: Sae Sena on 03-11-2025 Albumin DL <= 20 mg/L (U) [Mass/Vol] < 12.0 mg/L NO RANGE EST. [facility] 12 Lead EKGon 01-20-2025 12 Lead EKG [facility] Services [address] [place] [address] 12 Lead EKG 01/20/25 1111 MR#: [id number] Acct: [id number] Name: MASSIEL DAVIS Rep #: [id number] : 1980 44 From: Massiel Loomis MD Attending Dr: Status: DEP ER Ordering Dr: Sae Jorgensen CANARY RAISER-C Date: 01/20/25 Location: ED Sex: M C Admitted: Test Reason : PALPS Blood Pressure : */* mmHG Vent. Rate : 77 BPM Atrial Rate : 77 BPM P-R Int : 134 ms QRS Dur : 100 ms QT Int : 372 ms P-R-T Axes : 61 57 61 degrees QTcB Int : 420 ms Normal sinus rhythm Cannot rule out Inferior infarct , age undetermined Abnormal ECG Confirmed by Massiel Loomis ([id number]), news assignment editor DEENA MAYBERRY ([id number]) on 01/22/2025 8:00:29 AM Referred By: RACHELL/HAYDER Confirmed By: Massiel Loomis 01/22/25 0800 Date Massiel Loomis MD CC: CANARY RAISER-C Sae Jorgensen; Dr. Gutierrez Carrasquillo DO; Dr. Sae Sena MD Signed Normal [facility] Absolute lymphocyte countOrd ered By: Sae Jorgensen on 01-20-2025 Lymphocytes Auto (Unsp spec) [#/Vol] 1.13 10*3/uL 0.83-4.51 [facility] Absolute neutrophil countOrd ered By: Sae Jorgensen on 01-20-2025 Neutrophils (Bld) [#/Vol] 7.9 10*3/uL High 2.0-7.7 [facility] Automated lymphocyte count a s percentage of total leukocytesOrdered By: Sae Jorgensen on 01-20-2025 Lymphocytes/100 WBC Auto (Unsp spec) 11.4 % Low 19-41 [facility] Basic Metabolic Profile (BMP )on 01-20-2025 BUN/CRE 13.5 RATIO Normal 10-20 [facility] Comment on above: Order Comment: 'TROP ' Serial specimen #1, #2 or #3: 1 Performed By: #### L 501.4020, L501.9520, L500.2500, L100.0100 #### [facility] [address] [place], [address] CA,Total 9.0 mg/dL Normal 8.5-10.1 [facility] Comment on above: Order Comment: 'TROP ' Serial specimen #1, #2 or #3: 1 Performed By: #### L 501.4020, L501.9520, L500.2500, L100.0100 #### [facility] [address] [place], [address] Chloride [Moles/Vol] 102 mmol/L Normal 98-107 [facility] Comment on above: Order Comment: 'TROP ' Serial specimen #1, #2 or #3: 1 Performed By: #### L 501.4020, L501.9520, L500.2500, L100.0100 #### [facility] [address] [place], [address] CO2 [Moles/Vol] 25.0 mmol/L Normal 21.0-32.0 [facility] Comment on above: Order Comment: 'TROP ' Serial specimen #1, #2 or #3: 1 Performed By: #### L 501.4020, L501.9520, L500.2500, L100.0100 #### [facility] [address] [place], [address] Creatinine [Mass/Vol] 0.96 mg/dL Normal 0.70-1.30 [facility] Comment on above: Order Comment: 'TROP ' Serial specimen #1, #2 or #3: 1 Result Comment: The validity of the calculated GFR GFRAA in patients over 70 years has not been determined. Clinical correlation is essential. Performed By: #### L 501.4020, L501.9520, L500.2500, L100.0100 #### [facility] [address] [place], [address] ECRCL 114.17 ml/min Normal [facility] Comment on above: Order Comment: 'TROP ' Serial specimen #1, #2 or #3: 1 Performed By: #### L 501.4020, L501.9520, L500.2500, L100.0100 #### [facility] [address] [place], [address] EST GFR - AA 109 mL/min Normal >60 [facility] Comment on above: Order Comment: 'TROP ' Serial specimen #1, #2 or #3: 1 Result Comment: Afri can [place] GFR Calc Performed By: #### L 501.4020, L501.9520, L500.2500, L100.0100 #### [facility] [address] [place], [address] GAP 10 Normal 5-15 [facility] Comment on above: Order Comment: 'TROP ' Serial specimen #1, #2 or #3: 1 Performed By: #### L 501.4020, L501.9520, L500.2500, L100.0100 #### [facility] [address] [place], [address] GFR/1.73 sq M.predicted among non-blacks MDRD (S/P/Bld) [Vol rate/Area] 90 mL/min/{1.73_m2} Normal >60 [facility] Comment on above: Order Comment: 'TROP ' Serial specimen #1, #2 or #3: 1 Result Comment: Non- GFR Calc Performed By: #### L 501.4020, L501.9520, L500.2500, L100.0100 #### [facility] [address] [place], [address] Glucose [Mass/Vol] 160 mg/dL High 74-106 [facility] Comment on above: Order Comment: 'TROP ' Serial specimen #1, #2 or #3: 1 Result Comment: Fast ing Glucose result greater than or equal to 126 mg/dL suggests DIABETES MELLITUS per A.D.A. criteria. Performed By: #### L 501.4020, L501.9520, L500.2500, L100.0100 #### [facility] [address] [place], [address] Potassium [Moles/Vol] 4.2 mmol/L Normal 3.5-5.1 [facility] Comment on above: Order Comment: 'TROP ' Serial specimen #1, #2 or #3: 1 Performed By: #### L 501.4020, L501.9520, L500.2500, L100.0100 #### [facility] [address] [place], [address] Sodium [Moles/Vol] 136 mmol/L Normal 136-145 [facility] Comment on above: Order Comment: 'TROP ' Serial specimen #1, #2 or #3: 1 Performed By: #### L 501.4020, L501.9520, L500.2500, L100.0100 #### [facility] [address] [place], [address] Urea nitrogen [Mass/Vol] 13 mg/dL Normal 7-18 [facility] Comment on above: Order Comment: 'TROP ' Serial specimen #1, #2 or #3: 1 Performed By: #### L 501.4020, L501.9520, L500.2500, L100.0100 #### [facility] [address] [place], [address] Basophil percentageOrdered B y: Sae Jorgensen on 01-20-2025 Basophils/100 WBC (Bld) 0.5 % 0-1 [facility] Blood urea nitrogen (BUN)/cr eatinine ratioOrdered By: Sae Jorgensen on 01-20-2025 Urea nitrogen/Creatinine [Mass ratio] 13.5 mg/mg - [facility] CBC W/Diff, Automatedon 12-29 Absolute Lymph 1.13 X10 3/uL Normal 0.83-4.51 [facility] Comment on above: Performed By: #### L 501.4020, L501.9520, L500.2500, L100.0100 #### [facility] [address] [place], [address] Absolute Neut 7.9 X10 3/uL High 2.0-7.7 [facility] Comment on above: Performed By: #### L 501.4020, L501.9520, L500.2500, L100.0100 #### [facility] [address] [place], [address] Basophils/100 WBC (Bld) 0.5 % Normal 0-1 [facility] Comment on above: Performed By: #### L 501.4020, L501.9520, L500.2500, L100.0100 #### [facility] [address] [place], [address] Eosinophils/100 WBC (Bld) 1.8 % Normal 0-5 [facility] Comment on above: Performed By: #### L 501.4020, L501.9520, L500.2500, L100.0100 #### [facility] [address] [place], [address] Erythrocyte distribution width (RBC) [Ratio] 13.0 % Normal 11.6-14.6 [facility] Comment on above: Performed By: #### L 501.4020, L501.9520, L500.2500, L100.0100 #### [facility] [address] [place], [address] Hematocrit (Bld) [Volume fraction] 42.8 % Normal 40-54 [facility] Comment on above: Performed By: #### L 501.4020, L501.9520, L500.2500, L100.0100 #### [facility] [address] [place], [address] Hemoglobin (Bld) [Mass/Vol] 14.8 g/dL Normal 13.0-16.5 [facility] Comment on above: Performed By: #### L 501.4020, L501.9520, L500.2500, L100.0100 #### [facility] [address] [place], [address] IG% 0.700 Normal 0.0-0.9 [facility] Comment on above: Result Comment: IG% - Immature Granulocytes (promyelocytes, myelocytes and metamyelocytes) > 1% indicates that a LEFT SHIFT is Present. Performed By: #### L 501.4020, L501.9520, L500.2500, L100.0100 #### [facility] [address] [place], [address] Lymphocytes/100 WBC (Bld) 11.4 % Low 19-41 [facility] Comment on above: Performed By: #### L 501.4020, L501.9520, L500.2500, L100.0100 #### [facility] [address] [place], [address] MCH (RBC) [Entitic mass] 28.8 pg Normal 27.0-32.0 [facility] Comment on above: Performed By: #### L 501.4020, L501.9520, L500.2500, L100.0100 #### [facility] [address] [place], [address] MCHC (RBC) [Mass/Vol] 34.6 g/dL Normal 32-36 [facility] Comment on above: Performed By: #### L 501.4020, L501.9520, L500.2500, L100.0100 #### [facility] [address] [place], [address] MCV (RBC) [Entitic vol] 83.4 fL Normal 80-94 [facility] Comment on above: Performed By: #### L 501.4020, L501.9520, L500.2500, L100.0100 #### [facility] [address] [place], [address] Monocytes/100 WBC (Bld) 6.3 % Normal 0-10 [facility] Comment on above: Performed By: #### L 501.4020, L501.9520, L500.2500, L100.0100 #### [facility] [address] [place], [address] Neutrophils/100 WBC (Bld) 79.3 % High 47-70 [facility] Comment on above: Performed By: #### L 501.4020, L501.9520, L500.2500, L100.0100 #### [facility] [address] [place], [address] Nucleated RBC (Bld) [#/Vol] 0 10*3/uL Normal 0-5 [facility] Comment on above: Performed By: #### L 501.4020, L501.9520, L500.2500, L100.0100 #### [facility] [address] [place], [address] Platelet mean volume (Bld) [Entitic vol] 9.4 fL Normal 6.2-12.0 [facility] Comment on above: Performed By: #### L 501.4020, L501.9520, L500.2500, L100.0100 #### [facility] [address] [place], [address] Platelets (Bld) [#/Vol] 291 10*3/uL Normal 150-450 [facility] Comment on above: Performed By: #### L 501.4020, L501.9520, L500.2500, L100.0100 #### [facility] [address] [place], [address] RBC (Bld) [#/Vol] 5.13 10*6/uL Normal 4.6-6.2 [facility] Comment on above: Performed By: #### L 501.4020, L501.9520, L500.2500, L100.0100 #### [facility] [address] [place], [address] RDW SD 39.3 fl Normal 35.1-43.9 [facility] Comment on above: Performed By: #### L 501.4020, L501.9520, L500.2500, L100.0100 #### [facility] [address] [place], [address] WBC (Bld) [#/Vol] 9.9 10*3/uL Normal 4.4-11.0 [facility] Comment on above: Performed By: #### L 501.4020, L501.9520, L500.2500, L100.0100 #### [facility] [address] [place], [address] Carbon dioxide measurementOr dered By: Sae Jorgensen on 01-20-2025 CO2 [Moles/Vol] 25.0 mmol/L 21.0-32.0 [facility] Chest PA and Lateralon 01-20 Chest PA and Lateral [facility] Imaging Services [address] [place] [address] Chest PA and Lateral MR#: [id number] Acct: [id number] Name: MASSIEL DAVIS Rep #: [id number] : 1980 M 44 From: Wayne Rossi MD PCP: Dr. Sae Sena MD Status: REG ER Study: Chest PA and Lateral Date of Exam: 01/20/25 Exam# [id number] Ordering Dr: Sae Jorgensen CANARY RAISERLeidy EXAM: XR Chest, 2 Views CLINICAL INDICATION: TECHNIQUE: Frontal and lateral views of the chest. COMPARISON: No relevant prior studies available. FINDINGS: LUNGS AND PLEURAL SPACES: Unremarkable. No consolidation. No pneumothorax. HEART: Unremarkable. No cardiomegaly. MEDIASTINUM: Unremarkable. Normal mediastinal contour. BONES/JOINTS: Unremarkable. No acute fracture. RAD/Chest PA and Lateral IMPRESSION: No acute cardiopulmonary process. Reading Location: [facility] CC: DILMA Jorgensen; Dr. Sae Sena MD [employer] Tech: Signed Normal [facility] Chloride measurementOrdered By: Sae Jorgensen on 01-20-2025 Chloride [Moles/Vol] 102 mmol/L 98-107 [facility] Emergency Department Summary on 01-20-2025 Emergency Department Summary [facility] Medical Records Department [address] [place] [address] Emergency Department Summary 01/20/25 MR#: [id number] Acct: [id number] Name: MASSIEL DAVIS Rep #: [id number] : 1980 44 From: Gutierrez Carrasquillo DO PCP: Dr. 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 Patient states he did have a episode 1 year ago where they had to use a medicine to slow his heart rate down. Patient does not see a document controller how he does see his PCP. Patient states today while at work, he felt dizzy, felt that his heart rate was beating fast, he checked his pulse it was over 120. Secondary to his history, he is here for evaluation. Patient denies any recent travel, recent surgeries, patient [place] any history of blood clots in legs or lungs [facility] Medical History (Updated 01/20/25 @ 13:04 by DILMA Banegas) Diabetes Home Medications ???Medication ???Instructions ???Recorded ???Last Taken ???Type lisinopril 20 mg tablet 20 mg PO DAILY #30 tabs 03/25/23 U nknown Rx amlodipine 5 mg tablet 5 mg PO DAILY 01/20/25 Unknown His tory insulin aspart U-100 100 unit/mL 30 unit subcut TID 01/20/25 Unknow n History (3 mL) subcutaneous pen (Novolog FlexPen U-100 Insulin aspart) insulin glargine 100 unit/mL (3 100 unit subcut QHS 01/20/25 Unkno wn History mL) subcutaneous pen (Lantus Solostar U-100 Insulin) lisinopril 10 mg tablet 10 mg PO DAILY 01/20/25 Unknown Hi story metformin 500 mg tablet mg 01/20/25 Unknown History sitagliptin phosphate 100 mg 100 mg PO DAILY 01/20/25 Unknown H istory tablet (Januvia) Allergy/AdvReac Type Severity Reaction Status Date / Time No Known Allergies Allergy Verified 01/20/25 10:57 Surgical History no surgical history Social History Smoking Status: Heavy Smoker (>10/day) ROS ROS ED ROS Narrative Constitutional: Negative for fever, chills, weight loss, weakness Eyes: Negative for vision loss, vision change, double vision ENT: Negative for any sore throat, ear pain, congestion Cardiovascular: Negative for any chest pain, tightness. Positive palpitations Respiratory: Negative for any cough, sputum production, hemoptysis, dyspnea, dyspnea on exertion, orthopnea Gastrointestinal: Negative for any abdominal pain, nausea, vomiting, diarrhea, constipation, blood in stool, blood in vomit : Negative for any urinary frequency, dysuria, retention, blood in urine Muscle skeletal: Negative for any neck pain, back pain Neurological: Negative for any headache, syncope, dizziness Skin: Negative for any rashes, itching, abrasions, lacerations Psychiatric: Negative for any depression, anxiety, stress, suicidal ideation, homicidal ideation Hematologic: Negative for any excessive bruising, easy bleeding EXAM Physical Exam Narrative Exam Narrative: Vital signs reviewed. Patient is in no obvious distress. HEET: Head normocephalic atraumatic, TMs clear bilaterally. Posterior pharynx is clear, moist mucous membranes. Nares clear bilaterally. Neck: Supple with no lymphadenopathy or tenderness. No signs of meningismus. Cardiac: Regular rate and rhythm no murmurs gallops or rubs, equal peripheral pulses bilaterally. Respiratory: Lungs clear to auscultation bilaterally. No chest tenderness. Abdomen: Soft, nontender, nondistended. No abdominal bruit or pulsatile masses. No hepatosplenomegaly Extremities: No peripheral edema, no signs of gross trauma or deformity. Active full range of motion of all extremities. Neuro: Cranial nerves II through XII intact, no focal neurological deficits. Skin: Clean dry and intact with no rash, purpura, petechiae, vesicles or pustules. Backs/flank: No CVA tenderness, no midline spinal tenderness, no deformity. Psych: Normal mood and affect. No SI, HI or acute psychosis. Const Vital Signs: 01/20/25 10:57 01/20/25 11:29 01/20/25 11:30 Temperature 97.2 F L Temperature Source Oral Pulse Rate 77 Respiratory Rate 16 Respiratory Effort Normal Blood Pressure 157/83 H Blood Pressure Mean 107 Pulse Ox 100 100 Oxygen Delivery Method Room Air Room Air 01/20/25 12:56 01/20/25 13:05 Temperature 97.2 F L Temperature Source Pulse Rate 79 79 Respiratory Rate 14 14 Respiratory Effort Blood Pressure 157/83 H Blood Pressure Mean 107 Pulse Ox 97 97 Oxygen Delivery Method Physical Exam Const Vital Signs: 01/20/25 10:57 01/20/25 11:29 01/20/25 11:30 Temperature 97.2 F L (more content not included)... Normal [facility] Eosinophil percentageOrdered By: Sae Jorgensen on 01-20-2025 Eosinophils/100 WBC (Bld) 1.8 % 0-5 [facility] Erythrocyte distribution wid th (RBC) [Ratio]Ordered By: Sae Jorgensen on 01-20-2025 Erythrocyte distribution width (RBC) [Entitic vol] 39.3 fL 35.1-43.9 [facility] Erythrocyte distribution wid th ratioOrdered By: Sae Jorgensen on 01-20-2025 Erythrocyte distribution width (RBC) [Ratio] 13.0 % 11.6-14.6 [facility] Erythrocyte distribution wid th standard deviationOrdered By: Sae Jorgensen on 01-20-2025 Erythrocyte distribution width (RBC) [Ratio] 39.3 fl 35.1-43.9 [facility] Estimated glomerular filtrat ion rate (GFR) AmericanOrdered By: Sae Jorgensen on 01-20-2025 Estimated GFR (MDRD) Amer 109 mL/min >60 [facility] Comment on above: GFR Calc Estimation of creatinine allegra aranceOrdered By: Sae Jorgensen on 01-20-2025 Estimated Creatinine Clearance Calc 114.17 ml/min [facility] Glomerular filtration rate ( GFR) estimationOrdered By: Sae Jorgensen on 01-20-2025 Estimated GFR (MDRD) Non-Af Amer 90 mL/min >60 [facility] Comment on above: Non- GFR Calc GFR/1.73 sq M.predicted among non-blacks MDRD (S/P/Bld) [Vol rate/Area] 90 mL/min/{1.73_m2} >60 [facility] Comment on above: Non- GFR Calc Glucose measurementOrdered B y: Sae Jorgensen on 01-20-2025 Glucose [Mass/Vol] 160 mg/dL High 74-106 [facility] Comment on above: Fasting Glucose resu lt greater than or equal to 126 mg/dL suggests DIABETES MELLITUS per A.D.A. criteria. Hematocrit Auto (Bld) [Volum e fraction]Ordered By: Sae Jorgensen on 01-20-2025 Hematocrit (Bld) [Volume fraction] 42.8 % 40-54 [facility] Hemoglobin measurementOrdere d By: Sae Jorgensen on 01-20-2025 Hemoglobin (Bld) [Mass/Vol] 14.8 g/dL 13.0-16.5 [facility] Immature granulocytes/100 WB C Auto (Bld)Ordered By: Sae Jorgensen on 01-20-2025 Immature granulocytes/100 WBC (Bld) 0.700 % 0.0-0.9 [facility] Comment on above: IG% - Immature Granu locytes (promyelocytes, myelocytes and metamyelocytes) > 1% indicates that a LEFT SHIFT is Present. L501.4020on 01-20-2025 TROPONIN-I HS 3 pg/mL Normal 3.0-78.0 [facility] Comment on above: Order Comment: 'TROP ' Serial specimen #1, #2 or #3: 1 Result Comment: Logan pickering Note: New Test Units and Gender Specific Reference Ranges. For more information see Policy Stat Procedure [place] High Sensitivity Troponin (TNIH) and attachments. Performed By: #### L 501.4020, L501.9520, L500.2500, L100.0100 #### [facility] [address] [place], [address] Lymphocytes Auto (Unsp spec) [#/Vol]Ordered By: Sae Jorgensen on 01-20-2025 Lymphocytes (Bld) [#/Vol] 1.13 10*3/uL 0.83-4.5 1 [facility] Lymphocytes/100 WBC Auto (Un sp spec)Ordered By: Sae Jorgensen on 01-20-2025 Lymphocytes/100 WBC (Bld) 11.4 % Low 19-41 [facility] MCV (mean corpuscular volume ) determinationOrdered By: Sae Jorgensen on 01-20-2025 MCV (RBC) [Entitic vol] 83.4 fL 80-94 [facility] Mean corpuscular hemoglobin (MCH) determinationOrdered By: Sae Jorgensen on 01-20-2025 MCH (RBC) [Entitic mass] 28.8 pg 27.0-32.0 [facility] Mean corpuscular hemoglobin concentration (MCHC) determinationOrdered By: Sae Jorgensen on 01-20-2025 MCHC (RBC) [Mass/Vol] 34.6 g/dL 32-36 [facility] Mean platelet volume determi nationOrdered By: Sae Jorgensen on 01-20-2025 Platelet mean volume (Bld) [Entitic vol] 9.4 fL 6.2-12.0 [facility] Monocyte percentageOrdered B y: Sae Jorgensen on 01-20-2025 Monocytes/100 WBC (Bld) 6.3 % 0-10 [facility] Neutrophil percentageOrdered By: Sae Jorgensen on 01-20-2025 Neutrophils/100 WBC (Bld) 79.3 % High 47-70 [facility] Nucleated red blood cell per centageOrdered By: Sae Jorgensen on 01-20-2025 Nucleated RBC/100 WBC (Bld) [Ratio] 0 % 0-5 [facility] Platelet countOrdered By: Chris Jorgensen on 01-20-2025 Platelets (Bld) [#/Vol] 291 10*3/uL 150-450 [facility] Potassium measurementOrdered By: Sae Jorgensen on 01-20-2025 Potassium [Moles/Vol] 4.2 mmol/L 3.5-5.1 [facility] RBC Auto (Bld) [#/Vol]Ordere d By: Sae Jorgensen on 01-20-2025 RBC (Bld) [#/Vol] 5.13 10*6/uL 4.6-6.2 [facility] Serum anion gap measurementO rdered By: Sae Jorgensen on 01-20-2025 Anion gap [Moles/Vol] 10 mmol/L 5-15 [facility] Serum or plasma calcium kylah urement (mass/volume)Ordered By: Sae Jorgensen on 01-20-2025 Calcium [Mass/Vol] 9.0 mg/dL 8.5-10.1 [facility] Serum or plasma creatinine m easurement (mass/volume)Ordered By: Sae Jorgensen on 01-20-2025 Creatinine [Mass/Vol] 0.96 mg/dL 0.70-1.30 [facility] Comment on above: The validity of the calculated GFR & GFRAA in patients over 70 years has not been determined. Clinical correlation is essential. Serum or plasma thyroid stim ulating hormone (TSH) measurement (units/volume)Ordered By: Sae Jorgensen on 01-20-2025 TSH Qn 1.140 uIU/mL 0.358-3.740 [facility] Serum or plasma urea nitroge n measurement (mass/volume)Ordered By: Sae Jorgensen on 01-20-2025 Urea nitrogen [Mass/Vol] 13 mg/dL 7-18 [facility] Sodium levelOrdered By: Sae Jorgensen on 01-20-2025 Sodium [Moles/Vol] 136 mmol/L 136-145 [facility] TSH QnOrdered By: Sae pretty on 01-20-2025 Thyroid Stimulating Hormone (TSH) 1.140 uIU/mL 0.358-3.740 [facility] Thyroid Stim Hormone (TSH)on 01-20-2025 TSH 1.140 uIU/mL Normal 0.358-3.740 [facility] Comment on above: Order Comment: 'TROP ' Serial specimen #1, #2 or #3: 1 Performed By: #### L 501.4020, L501.9520, L500.2500, L100.0100 #### [facility] [address] [place], [address] Troponin IOrdered By: Sae sam on 01-20-2025 Troponin I 3 pg/mL 3.0-78.0 [facility] Comment on above: Please Note: New [place] t Units and Gender Specific Reference Ranges. For more information see Policy Stat Procedure [place] High Sensitivity Troponin (TNIH) and attachments. Troponin I High Sensitivity 3 pg/mL 3.0-78.0 [facility] Comment on above: Please Note: New [place] t Units and Gender Specific Reference Ranges. For more information see Policy Stat Procedure [place] High Sensitivity Troponin (TNIH) and attachments. White blood cell (WBC) count Ordered By: Sae Jorgensen on 01-20-2025 WBC (Bld) [#/Vol] 9.9 10*3/uL 4.4-11.0 [facility] Comprehensive Metabolic Prof ilon 11-13-2024 Albumin [Mass/Vol] 4.0 g/dL Normal 3.2-5.0 [facility] Comment on above: Performed By: #### L 500.4050, L500.4100, L502.0500 ####[facility] [address] [place], [address] Albumin/Globulin [Mass ratio] 1.1 {ratio} Normal 0.9-2.4 [facility] Comment on above: Performed By: #### L 500.4050, L500.4100, L502.0500 ####[facility] [address] [place], [address] ALK P 62 U/L Normal 45-117 [facility] Comment on above: Performed By: #### L 500.4050, L500.4100, L502.0500 ####[facility] [address] [place], [address] ALT [Catalytic activity/Vol] 41 U/L Normal 16-61 [facility] Comment on above: Performed By: #### L 500.4050, L500.4100, L502.0500 ####[facility] [address] [place], [address] AST [Catalytic activity/Vol] 16 U/L Normal 15-37 [facility] Comment on above: Performed By: #### L 500.4050, L500.4100, L502.0500 ####[facility] [address] [place], [address] Bilirubin [Mass/Vol] 0.60 mg/dL Normal 0.20-1.00 [facility] Comment on above: Result Comment: For patients on eltrombopag therapy, use of Dimension [place] TBIL is not recommended. Performed By: #### L 500.4050, L500.4100, L502.0500 ####[facility] [address] [place], [address] BUN/CRE 10.9 RATIO Normal 10-20 [facility] Comment on above: Performed By: #### L 500.4050, L500.4100, L502.0500 ####[facility] [address] [place], [address] CA,Total 9.1 mg/dL Normal 8.5-10.1 [facility] Comment on above: Performed By: #### L 500.4050, L500.4100, L502.0500 ####[facility] [address] [place], [address] Chloride [Moles/Vol] 102 mmol/L Normal 98-107 [facility] Comment on above: Performed By: #### L 500.4050, L500.4100, L502.0500 ####[facility] [address] [place], [address] CO2 [Moles/Vol] 28.0 mmol/L Normal 21.0-32.0 [facility] Comment on above: Performed By: #### L 500.4050, L500.4100, L502.0500 ####[facility] [address] [place], [address] Creatinine [Mass/Vol] 0.91 mg/dL Normal 0.70-1.30 [facility] Comment on above: Result Comment: The validity of the calculated GFR GFRAA in patients over 70 years has not been determined. Clinical correlation is essential. Performed By: #### L 500.4050, L500.4100, L502.0500 ####[facility] [address] [place], [address] EST GFR - AA 115 mL/min Normal >60 [facility] Comment on above: Result Comment: Afri can [place] GFR Calc Performed By: #### L 500.4050, L500.4100, L502.0500 ####[facility] [address] [place], [address] GAP 5 Normal 5-15 [facility] Comment on above: Performed By: #### L 500.4050, L500.4100, L502.0500 ####[facility] [address] [place], [address] GFR/1.73 sq M.predicted among non-blacks MDRD (S/P/Bld) [Vol rate/Area] 95 mL/min/{1.73_m2} Normal >60 [facility] Comment on above: Result Comment: Non- GFR Calc Performed By: #### L 500.4050, L500.4100, L502.0500 ####[facility] [address] [place], [address] Globulin (S) [Mass/Vol] 3.5 g/dL Normal 2.2-4.2 [facility] Comment on above: Performed By: #### L 500.4050, L500.4100, L502.0500 ####[facility] [address] [place], [address] Glucose [Mass/Vol] 129 mg/dL High 74-106 [facility] Comment on above: Result Comment: Fast ing Glucose result greater than or equal to 126 mg/dL suggests DIABETES MELLITUS per A.D.A. criteria. Performed By: #### L 500.4050, L500.4100, L502.0500 ####[facility] [address] [place], [address] Potassium [Moles/Vol] 4.2 mmol/L Normal 3.5-5.1 [facility] Comment on above: Performed By: #### L 500.4050, L500.4100, L502.0500 ####[facility] [address] [place], [address] Sodium [Moles/Vol] 136 mmol/L Normal 136-145 [facility] Comment on above: Performed By: #### L 500.4050, L500.4100, L502.0500 ####[facility] [address] [place], [address] T PROT 7.5 g/dL Normal 6.4-8.2 [facility] Comment on above: Performed By: #### L 500.4050, L500.4100, L502.0500 ####[facility] [address] [place], [address] Urea nitrogen [Mass/Vol] 10 mg/dL Normal 7-18 [facility] Comment on above: Performed By: #### L 500.4050, L500.4100, L502.0500 ####[facility] [address] [place], [address] Lipid Profileon 11-13-2024 Cholesterol [Mass/Vol] 137 mg/dL Normal 200 [facility] Comment on above: Result Comment: <200 mg/dL Desirable 200-240 mg/dL Borderline >240 mg/dL High Risk Performed By: #### L 500.4050, L500.4100, L502.0500 ####[facility] [address] [place], [address] Cholesterol in HDL [Mass/Vol] 44 mg/dL Normal [facility] Comment on above: Result Comment: The drugs N-Acetylcysteine and Metamizole may falsely depress this assay. Reference Range HDL <40 mg/dL Low HDL Cholesterol HDL >or= 60 mg/dL High HDL Cholesterol Performed By: #### L 500.4050, L500.4100, L502.0500 ####[facility] [address] [place], [address] Cholesterol in LDL [Mass/Vol] 45 mg/dL Normal 0-130 [facility] Comment on above: Performed By: #### L 500.4050, L500.4100, L502.0500 ####[facility] [address] [place], [address] Cholesterol in VLDL [Mass/Vol] 48 mg/dL High 5-40 [facility] Comment on above: Performed By: #### L 500.4050, L500.4100, L502.0500 ####[facility] [address] [place], [address] Triglyceride [Mass/Vol] 240 mg/dL High [facility] Comment on above: Result Comment: The drugs N-Acetylcysteine and Metamizole may falsely depress this assay. Serum Triglycerides Reference Interval Normal <150 mg/dL Borderline high 150 - 199 mg/dL High 200 - 499 mg/dL Very High > or = 500 mg/dL Performed By: #### L 500.4050, L500.4100, L502.0500 ####[facility] [address] [place], [address] Microalbumin,Random Urineon 11-13-2024 MICROALBUMIN,UR < 5.0 Normal NO RANGE EST. [facility] Comment on above: Performed By: #### L 500.4050, L500.4100, L502.0500 ####[facility] [address] [place], [address] Basophil percentageOrdered B y: Sae Sena on 10-18-2023 Bilirubin [Mass/Vol] 0.40 mg/dL 0.20-1.00 [facility] Comment on above: For patients on eltr ombopag therapy, use of Dimension [place] TBIL is not recommended. Chloride [Moles/Vol] 105 mmol/L 98-107 [facility] Cholesterol [Mass/Vol] 152 mg/dL <200 [facility] Comment on above: <200 mg/dL Desirable 200-240 mg/dL Borderline >240 mg/dL High Risk Glucose [Mass/Vol] 145 mg/dL 74-106 [facility] Comment on above: Fasting Glucose resu lt greater than or equal to 126 mg/dL suggests DIABETES MELLITUS per A.D.A. criteria. Potassium [Moles/Vol] 3.6 mmol/L 3.5-5.1 [facility] Protein [Mass/Vol] 7.5 g/dL 6.4-8.2 [facility] Sodium [Moles/Vol] 138 mmol/L 136-145 [facility] Triglyceride [Mass/Vol] 195 mg/dL <199 [facility] Comment on above: The drugs N-Acetylcy steine and Metamizole may falsely depress this assay.Serum Triglycerides Reference Interval Normal <150 mg/dL Borderline high 150 - 199 mg/dL High 200 - 499 mg/dL Very High > or = 500 mg/dL Laboratory - Chemistry and C hemistry - challengeOrdered By: Sae Sena on 10-18-2023 ALP [Catalytic activity/Vol] 70 U/L 45-117 [facility] ALT [Catalytic activity/Vol] 34 U/L 16-61 [facility] CO2 [Moles/Vol] 28.0 mmol/L 21.0-32.0 [facility] Globulin (S) [Mass/Vol] 3.5 g/dL 2.2-4.2 [facility] Urea nitrogen/Creatinine [Mass ratio] 9.5 mg/mg 10-20 [facility] No Panel InformationOrdered By: Sae Sena on 10-18-2023 Estimated GFR (MDRD) Amer 112 mL/min >60 [facility] Comment on above: GFR Calc Estimated GFR (MDRD) Non-Af Amer 93 mL/min >60 [facility] Comment on above: Non- GFR Calc Serum or plasma albumin kylah urement (mass/volume)Ordered By: Sae Sena on 10-18-2023 Albumin [Mass/Vol] 4.0 g/dL 3.2-5.0 [facility] Serum or plasma albumin/glob ulin mass ratioOrdered By: Sae Sena on 10-18-2023 Albumin/Globulin [Mass ratio] 1.1 {ratio} 0.9-2.4 [facility] Serum or plasma calcium kylah urement (mass/volume)Ordered By: Sae Sena on 10-18-2023 Calcium [Mass/Vol] 9.1 mg/dL 8.5-10.1 [facility] Serum or plasma cholesterol in HDL measurement (mass/volume)Ordered By: Sae Sena on 10-18-2023 Cholesterol in HDL [Mass/Vol] 48 mg/dL >40 [facility] Comment on above: The drugs N-Acetylcy steine and Metamizole may falsely depress this assay. Reference Range HDL <40 mg/dL Low HDL Cholesterol HDL >or= 60 mg/dL High HDL Cholesterol Serum or plasma cholesterol in VLDL measurement (mass/volume)Ordered By: Sae Sena on 10-18-2023 Cholesterol in VLDL [Mass/Vol] 39 mg/dL 5-40 [facility] Serum or plasma creatinine m easurement (mass/volume)Ordered By: Sae Sena on 10-18-2023 Creatinine [Mass/Vol] 0.94 mg/dL 0.70-1.30 [facility] Comment on above: The validity of the calculated GFR & GFRAA in patients over 70 years has not been determined. Clinical correlation is essential. Serum or plasma low density lipoprotein (LDL) cholesterol measurement (mass/volume)Ordered By: Sae Sena on 10-18-2023 Cholesterol in LDL [Mass/Vol] 65 mg/dL 0-130 [facility] Serum or plasma urea nitroge n measurement (mass/volume)Ordered By: Sae Sena on 10-18-2023 Urea nitrogen [Mass/Vol] 9 mg/dL 7-18 [facility] Thin prep Papanicolaou smear with manual screeningOrdered By: Sae Sena on 10-18-2023 Thin prep Papanicolaou smear with manual screening 15 U/L 15-37 [facility] Thin prep Papanicolaou smear with manual screening 5 5-15 [facility] Thin prep Papanicolaou smear with manual screening < 5.0 mg/L NO RANGE EST. [facility] Absolute lymphocyte countOrd ered By: Merrick Rizvi on 03-25-2023 Lymphocytes Auto (Unsp spec) [#/Vol] 1.71 10*3/uL 0.83-4.51 [facility] Basophil percentageOrdered B y: Merrick Rizvi on 03-25-2023 Basophils/100 WBC (Bld) 0.5 % 0-1 [facility] Chloride [Moles/Vol] 106 mmol/L 98-107 [facility] Eosinophils/100 WBC (Bld) 1.6 % 0-5 [facility] Glucose [Mass/Vol] 208 mg/dL 74-106 [facility] Comment on above: Glucose result great er than or equal to 200 mg/dLsuggests DIABETES MELLITUS per A.D.A. criteria. Neutrophils (Bld) [#/Vol] 6.9 10*3/uL 2.0-7.7 [facility] Neutrophils/100 WBC (Bld) 72.1 % 47-70 [facility] Potassium [Moles/Vol] 4.2 mmol/L 3.5-5.1 [facility] Sodium [Moles/Vol] 141 mmol/L 136-145 [facility] WBC (Bld) [#/Vol] 9.6 10*3/uL 4.4-11.0 [facility] Blood erythrocytes count (nu mber/volume)Ordered By: Merrick Rizvi on 03-25-2023 RBC (Bld) [#/Vol] 5.46 10*6/uL 4.6-6.2 [facility] Blood hemoglobin measurement (mass/volume)Ordered By: Merrick Rizvi on 03-25-2023 Hemoglobin (Bld) [Mass/Vol] 15.8 g/dL 13.0-16.5 [facility] Blood lymphocytes/100 leukoc ytesOrdered By: Merrick Rizvi on 03-25-2023 Lymphocytes/100 WBC (Bld) 17.8 % 19-41 [facility] Blood monocytes/100 leukocyt esOrdered By: Merrick Rizvi on 03-25-2023 Monocytes/100 WBC (Bld) 7.6 % 0-10 [facility] Blood platelet mean volumeOr dered By: Merrick Rizvi on 03-25-2023 Platelet mean volume (Bld) [Entitic vol] 9.8 fL 6.2-12.0 [facility] Determination of erythrocyte mean corpuscular volume (MCV)Ordered By: Merrick Rizvi on 03-25-2023 MCV (RBC) [Entitic vol] 84.1 fL 80-94 [facility] Hematocrit Auto (Bld) [Volum e fraction]Ordered By: Merrick Rizvi on 03-25-2023 Hematocrit (Bld) [Volume fraction] 45.9 % 40-54 [facility] - Chemistry and C hemistry - challengeOrdered By: Merrick iRzvi on 03-25-2023 CO2 [Moles/Vol] 25.0 mmol/L 21.0-32.0 [facility] Magnesium [Mass/Vol] 2.1 mg/dL 1.6-2.6 [facility] Urea nitrogen/Creatinine [Mass ratio] 10.0 mg/mg 10-20 [facility] - Hematology and Cell countsOrdered By: Merrick Rizvi on 03-25-2023 Erythrocyte distribution width (RBC) [Entitic vol] 39.6 fL 35.1-43.9 [facility] Erythrocyte distribution width (RBC) [Ratio] 13.0 % 11.6-14.6 [facility] Immature granulocytes/100 WBC (Bld) 0.400 % 0.0-0.9 [facility] Comment on above: IG% - Immature Granu locytes (promyelocytes, myelocytes and metamyelocytes) > 1% indicates that a LEFT SHIFT is Present. MCH (RBC) [Entitic mass] 28.9 pg 27.0-32.0 [facility] Nucleated RBC/100 WBC (Bld) [Ratio] 0 % 0-5 [facility] MCHC Auto (RBC) [Mass/Vol]Or dered By: Merrick Rizvi on 03-25-2023 MCHC (RBC) [Mass/Vol] 34.4 g/dL 32-36 [facility] No Panel InformationOrdered By: Merrick Rizvi on 03-25-2023 Estimated Creatinine Clearance Calc 110.74 ml/min [facility] Estimated GFR (MDRD) Amer 105 mL/min >60 [facility] Comment on above: GFR Calc Estimated GFR (MDRD) Non-Af Amer 87 mL/min >60 [facility] Comment on above: Non- GFR Calc Thyroid Stimulating Hormone (TSH) 1.18 uIU/mL 0.358-3.74 [facility] Platelets bldOrdered By: Jean-Claude Rizvi on 03-25-2023 Platelets (Bld) [#/Vol] 299 10*3/uL 150-450 [facility] Serum or plasma calcium kylah urement (mass/volume)Ordered By: Merrick Rizvi on 03-25-2023 Calcium [Mass/Vol] 9.2 mg/dL 8.5-10.1 [facility] Serum or plasma creatinine m easurement (mass/volume)Ordered By: Merrick Rizvi on 03-25-2023 Creatinine [Mass/Vol] 1.00 mg/dL 0.70-1.30 [facility] Comment on above: The validity of the calculated GFR & GFRAA in patients over 70 years has not been determined. Clinical correlation is essential. Serum or plasma urea nitroge n measurement (mass/volume)Ordered By: Merrick Rizvi on 03-25-2023 Urea nitrogen [Mass/Vol] 10 mg/dL 7-18 [facility] Thin prep Papanicolaou smear with manual screeningOrdered By: Merrick Rizvi on 03-25-2023 Thin prep Papanicolaou smear with manual screening 10 5-15 [facility] Basophil percentageOrdered B y: Dr. Sena on 12-03-2022 Chloride [Moles/Vol] 108 mmol/L 98-107 [facility] Cholesterol [Mass/Vol] 148 mg/dL <200 [facility] Comment on above: <200 mg/dL Desirable 200-240 mg/dL Borderline >240 mg/dL High Risk Glucose [Mass/Vol] 93 mg/dL 74-106 [facility] Potassium [Moles/Vol] 4.0 mmol/L 3.5-5.1 [facility] Sodium [Moles/Vol] 141 mmol/L 136-145 [facility] Triglyceride [Mass/Vol] 117 mg/dL <199 [facility] Comment on above: The drugs N-Acetylcy steine and Metamizole may falsely depress this assay.Serum Triglycerides Reference Interval Normal <150 mg/dL Borderline high 150 - 199 mg/dL High 200 - 499 mg/dL Very High > or = 500 mg/dL Laboratory - Chemistry and C hemistry - challengeOrdered By: Dr. Sena on 12-03-2022 CO2 [Moles/Vol] 30.0 mmol/L 21.0-32.0 [facility] Urea nitrogen/Creatinine [Mass ratio] 13.3 mg/mg 10-20 [facility] No Panel InformationOrdered By: Dr. Sena on 12-03-2022 Estimated GFR (MDRD) Amer 119 mL/min >60 [facility] Comment on above: GFR Calc Estimated GFR (MDRD) Non-Af Amer 98 mL/min >60 [facility] Comment on above: Non- GFR Calc Serum or plasma calcium kylah urement (mass/volume)Ordered By: Dr. Sena on 12-03-2022 Calcium [Mass/Vol] 9.2 mg/dL 8.5-10.1 [facility] Serum or plasma cholesterol in HDL measurement (mass/volume)Ordered By: Dr. Sena on 12-03-2022 Cholesterol in HDL [Mass/Vol] 50 mg/dL >40 [facility] Comment on above: The drugs N-Acetylcy steine and Metamizole may falsely depress this assay. Reference Range HDL <40 mg/dL Low HDL Cholesterol HDL >or= 60 mg/dL High HDL Cholesterol Serum or plasma cholesterol in VLDL measurement (mass/volume)Ordered By: Dr. Sena on 12-03-2022 Cholesterol in VLDL [Mass/Vol] 23 mg/dL 5-40 [facility] Serum or plasma creatinine m easurement (mass/volume)Ordered By: Dr. Sena on 12-03-2022 Creatinine [Mass/Vol] 0.90 mg/dL 0.70-1.30 [facility] Comment on above: The validity of the calculated GFR & GFRAA in patients over 70 years has not been determined. Clinical correlation is essential. Serum or plasma low density lipoprotein (LDL) cholesterol measurement (mass/volume)Ordered By: Dr. Sena on 12-03-2022 Cholesterol in LDL [Mass/Vol] 75 mg/dL 0-130 [facility] Serum or plasma urea nitroge n measurement (mass/volume)Ordered By: Dr. Sena on 12-03-2022 Urea nitrogen [Mass/Vol] 12 mg/dL 7-18 [facility] Thin prep Papanicolaou smear with manual screeningOrdered By: Dr. Sena on 12-03-2022 Thin prep Papanicolaou smear with manual screening 3 5-15 [facility] Basophil percentageon 2021 Chloride [Moles/Vol] 106 mmol/L 98-107 [facility] Work Phone: Glucose [Mass/Vol] 78 mg/dL 74-106 [facility] Work Phone: Potassium [Moles/Vol] 4.4 mmol/L 3.5-5.1 [facility] Work Phone: Sodium [Moles/Vol] 140 mmol/L 136-145 [facility] Work Phone: Laboratory - Chemistry and C hemistry - challengeon 07-23-2022 CO2 [Moles/Vol] 30.0 mmol/L 21.0-32.0 [facility] Work Phone: Urea nitrogen/Creatinine [Mass ratio] 11.8 mg/mg 10-20 [facility] Work Phone: No Panel Informationon 07-23 Estimated GFR (MDRD) Amer 94 mL/min >60 [facility] Work Phone: Comment on above: GFR Calc Estimated GFR (MDRD) Non-Af Amer 78 mL/min >60 [facility] Work Phone: Comment on above: Non- GFR Calc Serum or plasma calcium kylah urement (mass/volume)on 07-23-2022 Calcium [Mass/Vol] 9.3 mg/dL 8.5-10.1 [facility] Work Phone: Serum or plasma creatinine m easurement (mass/volume)on 07-23-2022 Creatinine [Mass/Vol] 1.10 mg/dL 0.70-1.30 [facility] Work Phone: Comment on above: The validity of the calculated GFR & GFRAA in patients over 70 years has not been determined. Clinical correlation is essential. Serum or plasma urea nitroge n measurement (mass/volume)on 07-23-2022 Urea nitrogen [Mass/Vol] 13 mg/dL 7-18 [facility] Work Phone: Thin prep Papanicolaou smear with manual screeningon 07-23-2022 Thin prep Papanicolaou smear with manual screening 4 - [facility] Work Phone: Vital Signs Date Time Vital Sign Value Performing Clinician Faci lity 03-11-2025 10:15-0400 Body height 187.[address] Sae Sena MD Work Phone: [facility] 03-11-2025 10:15-0400 Body mass index (BMI) [Ratio] 25.8 kg/m2 Dr. Sae Sena MD Work Phone: [facility] 03-11-2025 10:15-0400 Body weight 91.[address] Sae Sena MD Work Phone: [facility] 03-11-2025 10:15-0400 Diastolic blood pressure 66 mm[Hg] Dr. Sae Sena MD Work Phone: [facility] 03-11-2025 10:15-0400 Heart rate 64 /min Dr. Sae Sena MD Work Phone: [facility] 03-11-2025 10:15-0400 Respiratory rate 18 /min Dr. Sae Sena MD Work Phone: 4(819)902-910788 [place] [address] 03-11-2025 10:15-0400 SaO2% (BldA) [Mass fraction] 93 % Dr. Sae Sena MD Work Phone: 9(051)661-271288 [place] [address] 03-11-2025 10:15-0400 Systolic blood pressure 104 mm[Hg] Dr. Sae Sena MD Work Phone: 7(632)528-531288 [place] [address] 01-20-2025 13:05-0500 Body temperature 97.2 [degF] Dr. Sae Sena MD Work Phone: 6(862)191-367788 [place] [address] 01-20-2025 13:05-0500 Diastolic blood pressure 83 mm[Hg] Dr. Sae Sena MD Work Phone: 9(009)220-463088 [place] [address] 01-20-2025 13:05-0500 Heart rate 79 /min Dr. Sae Sena MD Work Phone: 2(905)674-179788 [place] [address] 01-20-2025 13:05-0500 Respiratory rate 14 /min Dr. Sae Sena MD Work Phone: 3(565)469-145388 [place] [address] 01-20-2025 13:05-0500 SaO2% (BldA) [Mass fraction] 97 % Dr. Sae Sena MD Work Phone: 5(666)859-335648 [place] [address] 01-20-2025 13:05-0500 Systolic blood pressure 157 mm[Hg] Dr. Sae Sena MD Work Phone: 0(199)933-950588 [place] [address] 01-20-2025 10:57-0500 Body mass index (BMI) [Ratio] 25.4 kg/m2 Dr. Sae Sena MD Work Phone: 0(187)101-908888 [place] [address] 01-20-2025 10:57-0500 Body weight 89.[address] Sae Sena MD Work Phone: 0(301)820-143288 [place] [address] 03-25-2023 06:25-0400 Diastolic blood pressure 90 mm[Hg] [facility] 03-25-2023 06:25-0400 Heart rate 88 /min [facility] 03-25-2023 06:25-0400 Respiratory rate 12 /min [facility] 03-25-2023 06:25-0400 SaO2% (BldA) [Mass fraction] 98 % [facility] 03-25-2023 06:25-0400 Systolic blood pressure 156 mm[Hg] [facility] 03-25-2023 04:42-0400 Body height 187.96 cm [facility] 03-25-2023 04:42-0400 Body mass index (BMI) [Ratio] 26.4 kg/m2 [facility] 03-25-2023 04:42-0400 Body temperature 97.7 [degF] [facility] 03-25-2023 04:42-0400 Body weight 93.5 kg [facility] Encounters Encounter Date Encounter Type Care Provider Facility Start: 09-12-2025 End: 09-12-2025 ambulatory Sae Sena [place] Start: 04-08-2025 Non-patient / Non-visit Dr. Roddy [facility]TON -[facility] Start: 04-08-2025 End: 04-08-[address] Sae Sena MD Work Phone: [facility] Work Phone: Start: 04-08-2025 End: 04-08-[address] Massiel Loomis MD -[facility] Work Phone: Start: 04-08-2025 End: 04-08-2025 ambulatory Sae Sena Facility:[facility] Start: 03-11-2025 End: 03-11-[address] Massiel Loomis MD -[facility] Work Phone: Start: 03-11-2025 End: 03-11-[facility] Start: 03-11-2025 End: 03-11-[address] Sae Sena MD Work Phone: [facility] Work Phone: Start: 03-11-2025 End: 03-11-[address] Sae Sena MD -Laboratory Work Phone: Start: 03-11-2025 End: 03-11-2025 ambulatory Sae Sena Facility:[facility] Start: 01-20-2025 End: 01-20-2025 Emergency department patient visit Dr. Gutierrez Carrasquillo DO -Emergency Department Work Phone: Start: 11-13-2024 End: 11-13-2024 [facility] Start: 10-18-2023 End: 10-18-2023 ambulatory [facility] Work Phone: Start: 10-18-2023 End: 10-18-2023 Patient encounter procedure [facility] [place] Work Phone: Start: 03-25-2023 End: 03-25-2023 Emergency department patient visit [facility] Start: 12-03-2022 End: 12-03-2022 Patient encounter procedure [facility] Start: 07-23-2022 End: 07-23-2022 ambulatory [facility] Work Phone: Start: 07-23-2022 End: 07-23-2022 Patient encounter procedure [facility] Procedures Date Procedure Procedure Detail Performing Clinician Start: 01-20-2025 X-ray of chest, PA a nd lateral views Dr. Sae Sena MD Work Phone: Start: 01-20-[address] Sae Sena MD Work Phone: Start: 01-20-2025 Measurement of renal function Dr. Sae Sena MD Work Phone: Comment on above: GFR Calc Plan of Treatment Date Care Activity Detail Author Start: 01-20-2025 [facility] Start: 01-20-2025 [facility] Patient Education [facility] Work Phone: Patient referral [facility] Work Phone: [facility] Payers Date Payer Category Payer Private Health Insurance [id number] 2024 Self-pay [id number] Unknown [facility] [id number] Unknown [id number] Unknown [id number] Unknown [id number] Unknown [id number] Unknown [id number] Unknown [id number] Unknown [id number] Social History Date Type Detail Facility Start: 11-25-2019 End: 03-25-2023 Tobacco smoking status [facility] Unknown if ever smoked [facility] Start: 11-25-2019 None [facility] Start: 11-25-2019 With Family [facility] Start: 11-25-2019 Cigarettes [facility] Start: 1980 Sex Assigned At Male [facility] Start: 03-11-2025 [facility] Start: 03-18-2025 Sex Male (finding) [facility] Mental Status Date Assessment Result Facility 01-20-2025 Cognitive function Voice/Name [facility] Work Phone: Evaluation note 03-11-2025 Note Date & Type Note Facility 03-11-2025 Evaluation note Diagnosis Onset Date Resolution Essential hypertension acute Ap ril 2024 10:11am H/O supraventricular tachycardia acute March 11, 2025 10:11am Type 2 diabetes mellitus without complication acute March 11, 2025 10:11am Heart palpitations chronic March 11, 2025 10:11am [facility] Work Phone: Evaluation note Note Date & Type Note Facility Evaluation note No assessment information availa ble [facility] Work Phone: Hospital Discharge instructions Note Date & Type Note Facility Hospital Discharge instructions Additional Instructions Please begin taking the 20 mg lisinopril secondary to your hypertension. Follow-up with your family doctor to discuss referral to a document controller and/or plate shear operator for further evaluation of your SVT. If symptoms return you can try to break them as you have done in the past by holding your breath blowing into a straw or massaging your neck or placing your face into an ice water bath [facility] Work Phone: Reason for referral (narrative) Note Date & Type Note Facility Reason for referral (narrative) No reason for referral information available [facility] Work Phone: Chief Complaint and Reason for Visit Chief Complaint DIABETES MELLITUS TY PE 2 Chief Complaint palpitations Chief Complaint Admit Date PALPITATIONS January 20, 2025 10:55am DIABETED MULITUS TYPE 2 UNCONTROLLED WIT HOUT COMPL March 11, 2025 7:52am Tachycardia/AFIB (Sena) March 11 025 10:11am Reason for Visit Admit Date Essential hypertension March 11, 2025 10:11am H/O supraventricular tachycardia February 252024 10:11am Type 2 diabetes mellitus without complic ation March 11, 2025 10:11am Heart palpitations March 11, 2025 10: 11am Chief Complaint Admit Date PALPITATIONS January 20, 2025 10:55am DIABETED MULITUS TYPE 2 UNCONTROLLED WIT HOUT COMPL March 11, 2025 7:52am Tachycardia/AFIB (Sena) March 11 025 10:11am ARRYHTHMIA April 08, 2025 7:35a m Advance Directives No Advanced Directives Records Found Advance Directive Response Recorded Date/ Time Living Will No Sam 30th, 2 019 2:04am Power of Wellness Specialist No November 25, 2019 2:04am Advance Directive Response Recorded Date/ Time Living Will No March 25, 2023 3:45am Power of Wellness Specialist No March 25 3:45am Advance Directive Response Recorded Date/ Time Living Will No March 25, 2023 4:45am Power of Wellness Specialist No March 25 4:45am Advance Directive Response Recorded Date/ Time Living Will No January 20, 025 12:28pm Do you have a Healthcare Power of Wellness Specialist? No January 20, 2025 12:28pm Family History No Family History Records Found Relationship Condition Age at Onset Recorded Date/T halima mother Myocardial infarction Unknown grandfather Cerebrovascular accident (CVA) Unknown Summary Purpose Additional Source Comments Goals (unrecognized section and content) Goals may be documented in a n alternate sectionGoals may be documented in an alternate sectionGoals may be documented in an alternate sectionGoals may be documented in an alternate sectionGoals may be documented in an alternate section Care Teams (unrecognized sec tion and content) Team Status: Active Member Role Status Dates Dr. Sae Snea MD Family Provider Active Dr. Sae Sena MD Primary Care Provider Active Team Status: Inactive Member Role Status Dates Dr. Sae Sena MD Primary Care Provi sharee, Attending Provider, Referring Provider Active Team Status: Inactive Member Role Status Dates Dr. Sae Sena MD Primary Care Provider, Attending Provider Active Team Status: Inactive Member Role Status Dates Dr. Sae Sena MD Primary Care Provider Active Dr. Merrick Rizvi DO Emergency Provider Active Team Status: Active Member Role Status Dates Dr. Sae Sena MD Primary Care Provider Active Team Status: Inactive Member Role Status Dates Dr. Sae Sena MD Primary Care Provider Active Start: January 20, 2025 End: January 20, 2025 Dr. Gutierrez Carrasquillo DO Attending Provider Active Start: January 20, 2025 End: January 20, 2025 Dr. Gutierrez Carrasquillo DO Emergency Provider Active Start: January 20, 2025 End: January 20, 2025 Team Status: Inactive Member Role Status Dates Dr. Sae Sena MD Primary Care Provider Active Start: March 11, 2025 End: March 11, 2025 Dr. Sae Sena MD Attending Provider Active Start: March 11, 2025 End: March 11, 2025 Dr. Sae Sena MD Referring Provider Active Start: March 11, 2025 End: March 11, 2025 Team Status: Inactive Member Role Status Dates Dr. Sae Sena MD Primary Care Provider Active Start: March 11, 2025 End: March 11, 2025 Dr. Sae Sena MD Referring Provider Active Start: March 11, 2025 End: March 11, 2025 Dr. Massiel Loomis MD Attending Provider Active Start: March 11, 2025 End: March 11, 2025 Team Status: Inactive Member Role Status Dates Dr. Sae Sena MD Primary Care Provider Active Start: April 08, 2025 End: April 08, 2025 Dr. Massiel Loomis MD Attending Provider Active Start: April 08, 2025 End: April 08, 2025 Dr. Massiel Loomis MD Referring Provider Active Start: April 08, 2025 End: April 08, 2025 Team Status: Active Member Role Status Dates Dr. Sae Sena MD Primary Care Provider Active Start: April 08, 2025 Dr. Dale Chanel MD Attending Provider Active S tart: April 08, 2025 (unrecognized sect ion and content) No Status Records Found INFORMATION SOURCE (unrecogn ized section and content) DATE CREATED AUTHOR 09/14/2025 [facility] FOR RECORDS PERTAINING TO PATIENTS WHO ARE OR HAVE BEEN ENROLLED IN A CHEMICAL DEPENDENCY/SUBSTANCEABUSE PROGRAM, SOME INFORMATION MAY BE OMITTED. This clinical summary was aggregated from multiple sources. Caution should be exercised in using it in the provision of clinical care. This summary normalizes information from multiple sources, and as a consequence, information in this document may materially change the coding, format and clinical context of patient data. In addition, data may be omitted in some cases. CLINICAL DECISIONS SHOULD BE BASED ON THE PRIMARY CLINICAL RECORDS. [employer] provides no warranty or guarantee of the accuracy or completeness of information in this document.
[2025-09-20 08:11] LABS: AST(SGOT) 18 U/L (<=37); Alanine Aminotransfer ALT/SGPT 18 U/L (<=46); Albumin, Serum 4.7 g/dL (3.5-5.0); Alkaline Phosphatase 68 U/L (40-129); Anion Gap 12 (5-15); BUN 17 mg/dL (4-19); BUN/Creat Ratio 15.1 RATIO (10-20); Calcium,Total 9.8 mg/dL (7.6-11.0); Carbon Dioxide 25.2 mmol/L (21.0-32.0); Chloride 101 mmol/L (98-108); Cholesterol 153 mg/dL (<=200); Globulin 3.0 g/dL (2.2-4.2); Glucose 194 mg/dL (70-99); Low Density Lipoprotein Calc. 87 mg/dL; Potassium 5.2 mmol/L (3.3-5.1); Triglycerides 123 mg/dL; Very Low Density Lipoprotein 25 mg/dL (5-40); cholesterol:hdl ratio screen 3.46
== END | disposition home or self-care (01) ==
LOC: LAB 07:07
PROVIDERS: PCP Family Medicine; Referring Provider Family Medicine; Visit Provider Family Medicine
DX: E11.9 Type 2 diabetes mellitus without complications (principal)
CPT/HCPCS: 36415; 80053; 80061

== ENCOUNTER → 2025-09-24 | Outpatient (CLI) | payer OTHER, SELFPAY ==
--- NOTE | 2025-09-24 16:30 | LES_PTH ---
PATIENT: MASSIEL DAVIS LOC: [facility] U#:[id number] AGE/SX: 45/M ROOM: RE09/24/[address]: Dr. Sae Sena MD : 1980 BED: DIS: 09/24/2025 SPEC #: [id number] RECD: 09/24/25 18:10 STATUS: [place] ADRIAN #: [id number] BRUNILDA: 09/24/25 16:[address]: Sae Sena DEPT: SURGICAL PATHOLOGY RECD BY: Bishnu Cervantes Tissues: A - Skin of neck, NOS Procedures: Surgery Specimen Level IV HEADER OPERATION: Biopsy neoplasm of right neck PRE-OP DIAGNOSIS: Neoplasm - right neck TISSUE SUBMITTED: A- Right neck neoplasm MICROSCOPIC DIAGNOSIS A. Right neck, biopsy: - Seborrheic keratosis. MICROSCOPIC DESCRIPTION Slides are reviewed. GROSS DESCRIPTION A. Received in formalin labeled with the patient's name and date of is a 1.2 x 0.9 x 0.4 cm light brown, firm, friable and bosselated portion of skin, devoid of orientation. A definitive resection margin is not grossly appreciated. The specimen is serially sectioned and entirely submitted in 1 cassette. ID 09/25/2025 CPT:[id number]
== END | disposition home or self-care (01) ==
PROVIDERS: PCP Family Medicine; Referring Provider Family Medicine; Visit Provider Family Medicine
DX: L82.1 Other seborrheic keratosis (principal)
CPT/HCPCS: 88305